=== PATIENT | female | born 1975 | race Caucasian/White ===

== ENCOUNTER 2018-08-18 16:48 | Emergency (ER) | payer OTHER, SELFPAY ==
[2018-08-18 16:53] VITALS: BP 115/73; PULSE 90; RESP 16; TEMP 37; O2SAT 100
[2018-08-18 17:12] LABS: Bilirubin Negative (Negative); Blood Negative (Negative); Clarity Clear; Glucose Negative (Negative); Ketones Negative (Negative); Leukocyte Esterase Negative (Negative); Nitrite Negative (Negative); Specific Gravity 1.015 (1.005-1.025); Urobilinogen 0.2 EU/dL (Up TO 0.2)
--- NOTE | 2018-08-18 17:17 | DI.CT_ITS ---
SYMPTOM/DIAGNOSIS: RUQ PAIN CT ABDOMEN AND PELVIS: CT scan of the abdomen and pelvis was performed following the uneventful administration of intravenous contrast material. There are dependent atelectatic changes in the lung bases, no acute infiltrates are seen. The liver, spleen, pancreas, gallbladder, bile ducts and adrenal glands are unremarkable. The kidneys, ureters and bladder have a normal appearance. The reproductive organs are unremarkable as visualized. The bowel shows no evidence of obstruction or inflammation. There is a normal retrocecal appendix present. The abdominal aorta is of normal caliber. No significant abdominal or pelvic adenopathy, ascites, or pneumoperitoneum is present. No acute abnormality is seen in the bones. IMPRESSION: No evidence of an acute abdomen.
[2018-08-18 17:29] LABS: Abs Immature Grans 0.01 k/cumm (0.0-0.09); Absolute Basophil Count 0.02 k/cumm (0.0-0.2); Absolute Eosinophil Count 0.12 k/cumm (0.0-0.7); Absolute Lymphocyte Count 2.89 k/cumm (1.2-3.4); Absolute Monocyte Count 0.96 k/cumm (0.11-0.7); Absolute Neutrophil Count 5.96 k/cumm (1.2-6.7); Basophils % 0.2; Eosinophils % 1.2; HCT 40.2 % (36.0-46.0); HGB 13.4 g/dL (12.0-15.5); Immature Grans % 0.1; Mean Corp. HGB Concentration 33.3 g/dL (32.0-36.0); Mean Corpuscular Volume 95.9 fL (80-95); Monocytes % 9.6; Neutrophils % 59.9; RBC 4.19 m/cumm (4.00-5.20); RBC Distribution Width 13.1 % (11.7-14.6); White Blood Cell Count 9.96 k/cumm (4.4-10.8)
--- NOTE | 2018-08-18 17:32 | ED.GENADUL_ITS ---
Discharge Plan Disposition Patient Disposition: HOME Condition: Good Discharge Details Chief Complaint: Abd Prob Clinical Impression: Muscle strain, Acute right flank pain Primary Care Provider: Nisha Booker ED Provider: Flaco Aguero Home Meds and New Rx's Prescriptions: New acetaminophen [Mapap Extra Strength] 500 MG tablet 1,000 mg PO Q6H 5 Days Qty: 60 RF: 0 lidocaine [Lidoderm] 1 PATCH patch 1 patch Topical Q24H Qty: 4 RF: 0 ibuprofen [Motrin IB] 200 MG tablet 600 mg PO Q6H 5 Days Qty: 60 RF: 0 Discharge Instructions Instructions: Flank Pain (ED) Additional Instructions: Please take Tylenol, Motrin and use Lidoderm patches as directed. Please avoid fatty foods. If you notice any worsening of your symptoms, or any new symptoms such as vomiting, diarrhea, fever, chills, shortness of breath, chest pain, numbness, weakness, or fainting , please return immediately to the emergency department for reevaluation. Please follow up with your primary care provider as soon as possible for reassessment and reevaluation. As always, it was a pleasure participating in your medical care today. Referrals: Nisha Booker [Primary Care Provider] - Medical Decision Making This is a 43-year-old female who presents with right upper quadrant pain for the last 4 days. It is unchanged by food, it is worsened with palpation and some movement. She has no associated urinary symptoms. Urine test is negative, urinalysis is benign. I am concerned for potential gallbladder pathology versus musculoskeletal. We did contact ultrasound however they are no longer at the hospital. We will get a CT scan for further evaluation potential gallbladder etiology, or other acute intra-abdominal pathology. 6:[address] scan has returned and demonstrates no significant abnormalities. Gallbladder is partially decompressed but no evidence of gallbladder wall thickening, or other significant abnormalities. Repeat evaluation the patient appears to be comfortable, vital signs continues to be normal. I feel her symptoms most likely secondary to musculoskeletal etiology, most likely a muscle spasm in the right lower ribs/flank. With a normal urinalysis normal laboratory workup, negative CT I feel she can be safely discharged home. Gallbladder spasms as a cause of radiology we have recommended that she avoid fatty foods. Also recommend continue Tylenol, Motrin, and heating pad. Her feels that it is most likely is a very bad mattress, and this may be playing a role, however I feel it less likely. we discussed red flags which to return the patient understands. I have extensively reviewed the treatment plan and discharge instructions with the patient and their family. I have addressed all patient concerns at this time. The patient and family was made aware of what symptoms to monitor for that would warrant a return to the emergency department. Discussed the plan with the patient and family, they demonstrate verbal understanding and agreement with our assessment and plan at this time. ABDOMEN: Liver: Normal. No mass. Gallbladder and bile ducts: Gallbladder is partially decompressed. Pancreas: Normal. No ductal dilation. Spleen: Normal. No splenomegaly. Adrenals: Normal. No mass. Kidneys and ureters: Normal. No hydronephrosis. Stomach and bowel: Normal. No obstruction. No mucosal thickening. Appendix: Status post appendectomy. PELVIS: Bladder: Unremarkable as visualized. Reproductive: Unremarkable as visualized. ABDOMEN and PELVIS: Intraperitoneal space: Normal. No free air. No significant fluid collection. Bones/joints: No acute fracture. No dislocation. Soft tissues: Unremarkable. Vasculature: Mild atherosclerosis. Lymph nodes: Normal. No enlarged lymph nodes. IMPRESSION: No acute findings. HPI General Date/Time Provider Initiated Documentation: 08/18/18 16:51 . HPI Narrative: This is a 43-year-old female with no past medical history no previous surgical history who presents today for right upper quadrant abdominal pain versus rib pain. Patient states that it is been present for the last 4 days, she describes that sharp in nature. It is located on the right flank, there is no radiation. It is not aggravated or improved by food. It is worsened with movement and palpation versus cough. She denies any associated cough though, any vomiting, diarrhea, dysuria or hematuria. She denies any other symptoms. She denies any IV or illicit drug use. She does admit to regular tobacco abuse. She denies any recent fever or chills. She denies any family history of cardiac disease at a young age. She denies any previous cardiac symptoms. She denies any chest pain or shortness of breath. Related Data Home Medications Medication Instructions Recorded Confirmed acetaminophen [Mapap Extra 1,000 mg PO Q6H 5 Days #60 tab 08/18/18 Strength] ibuprofen [Motrin Ib] 600 mg PO Q6H 5 Days #60 tab 11/12/18 lidocaine [Lidoderm] 1 patch TOPICAL Q24H #4 patch 08/18/18 Previous Rx's Medication Instructions Recorded acetaminophen [Mapap Extra 1,000 mg PO Q6H 5 Days #60 tab 08/18/18 Strength] ibuprofen [Motrin Ib] 600 mg PO Q6H 5 Days #60 tab 08/18/18 lidocaine [Lidoderm] 1 patch TOPICAL Q24H #4 patch 08/18/18 Allergies Allergy/AdvReac Type Severity Reaction Status Date / Time codeine AdvReac Intermediate Skin Rash Unverified 08/18/18 16:59 General Stated Complaint: Abd Prob WILFRIDO: 3 Review of Systems Review of Systems All systems reviewed & are unremarkable except as noted in HPI and below PFSH Social History Smoking/Tobacco Use Status: Current every day Exam Narrative Exam Narrative: 1.Const: Well-nourished, Well-developed, appearing stated age 2.Eyes: PERRL, no conjunctival injection, and symmetrical lids. 3.ENT: Atraumatic external nose and ears. Moist MM. Neck: Symmetric, trachea midline, No thyromegaly. 4.CVS: +S1/S2, No murmurs or gallops. Peripheral pulses 2+ and equal in all extremities. Brisk capillary refill in all extremities. 5.RESP: Unlabored respiratory effort. Clear to auscultation bilaterally. No wheezes rales or rhonchi 6.GI: Soft, Nontender/Nondistended, No hepatosplenomegaly. No guarding or rebound. Mild right upper quadrant pain with deep inhalation but no cessation of installation with palpation. No pain at McBurney's point. No flank or CVA tenderness. Negative heel strike, negative obturator and psoas sign 7.MSK: Normocephalic/Atraumatic, Extremities w/o deformity or ttp No cyanosis or clubbing, Normal movement of all extremities 8.Skin: Warm, Dry. No rashes or lesions. 9.Neuro: integration architect II-XII grossly intact. Sensation grossly intact, no focal neurologic deficits. 10.Psych: (AAO) x3. Appropriate mood and affect Course Vital Signs Temperature 37 C 08/18/18 16:53 Pulse 90 08/18/18 16:53 Respiratory Rate 16 08/18/18 16:53 Blood Pressure 115/73 08/18/18 16:53 Pulse Oximetry 100 08/18/18 16:53 Temperature 37 C 08/18/18 16:53 Temperature Source Skin 08/18/18 16:53 Pulse 90 08/18/18 16:53 Respiratory Rate 16 08/18/18 16:53 Respiratory Effort Non-Labored 08/18/18 16:53 Blood Pressure 115/73 08/18/18 16:53 Blood Pressure Position Sitting 08/18/18 16:53 Pulse Oximetry 100 08/18/18 16:53 Oxygen Delivery Method Room Air 08/18/18 16:53 Oxygen Flow Rate 0 08/18/18 16:53 Pain Level 0 08/18/18 16:53 Lab/Test Results Lab/Test Results: Laboratory Tests Range/Units 08/18/18 17:05 Urine Color (Yellow) Yellow Urine Clarity Clear Urine pH (5-8) 6.0 Ur Specific Carbon (1.005-1.025) 1.015 Urine Protein (Negative) mg/dL Negative Urine Ketones (Negative) mg/dL Negative Urine Blood (Negative) Negative Urine Nitrite (Negative) Negative Urine Bilirubin (Negative) Negative Urine Urobilinogen (Up TO 0.2) EU/dL 0.2 Ur Leukocyte Esterase (Negative) Negative Urine Glucose (Negative) mg/dL Negative POC- Test(urine) Negative
[2018-08-18] MEDS: Omnipaque 350 MG/ML 100 ML BTL IJ (17:35)
[2018-08-18 17:44] LABS: Lipase 81 U/L (73-393)
[2018-08-18 17:49] LABS: Mean Platelet Volume 12.2 fL (8.0-11.0); Platelet Count 90 x1000/uL (130-400)
[2018-08-18] MEDS: Normal Saline 1,000 ML 1000 ML IV (17:50)
[2018-08-18] MEDS: Ketorolac 15 MG/ML VIAL IVP (17:50)
--- NOTE | 2018-08-18 18:05 | DI.VRAD_ITS ---
EXAM: CT Abdomen and Pelvis With Intravenous Contrast EXAM DATE/TIME: 08/18/2018 5:19 PM CLINICAL HISTORY: 43 years old, female; Pain; Abdominal pain; Localized; Right upper quadrant (ruq); Patient HX: Ruq pain TECHNIQUE: Axial computed tomography images of the abdomen and pelvis with intravenous contrast. Coronal and sagittal reformatted images were created and reviewed. COMPARISON: No relevant prior studies available. FINDINGS: Lower thorax: No acute findings. ABDOMEN: Liver: Normal. No mass. Gallbladder and bile ducts: Gallbladder is partially decompressed. Pancreas: Normal. No ductal dilation. Spleen: Normal. No splenomegaly. Adrenals: Normal. No mass. Kidneys and ureters: Normal. No hydronephrosis. Stomach and bowel: Normal. No obstruction. No mucosal thickening. Appendix: Status post appendectomy. PELVIS: Bladder: Unremarkable as visualized. Reproductive: Unremarkable as visualized. ABDOMEN and PELVIS: Intraperitoneal space: Normal. No free air. No significant fluid collection. Bones/joints: No acute fracture. No dislocation. Soft tissues: Unremarkable. Vasculature: Mild atherosclerosis. Lymph nodes: Normal. No enlarged lymph nodes. IMPRESSION: No acute findings. Dictated and Authenticated by: Mikie Shaw MD. Ordering:DENNIS WYLIE MD
[2018-08-18 18:06] LABS: ALT 19 U/L (12-78); AST 5 U/L (15-37); Albumin 3.7 g/dL (3.4-5.0); Alkaline Phosphatase 87 U/L (46-116); Anion Gap 8.2 mmol/L (3-11); BUN 10 mg/dL (7-18); Bilirubin, Total 0.2 mg/dL (0.2-1.0); CO2 28.8 mmol/L (21.0-32.0); CREATININE 0.81 mg/dL (0.55-1.02); Calcium 8.7 mg/dL (8.5-10.1); Chloride 102 mmol/L (98-107); Glucose 90 mg/dL (70-100); Potassium 3.7 mmol/L (3.5-5.1); Sodium 139 mmol/L (136-145)
[2018-08-18 18:45] VITALS: BP 111/64; PULSE 71; RESP 16; TEMP 37; O2SAT 97
== END 2018-08-18 19:02 | disposition home or self-care (01) ==
PROVIDERS: Emergency Provider Student in an Organized Health Care Education/Training Program; PCP Nurse Practitioner Family
DX: R10.11 Right upper quadrant pain (principal); S39.011A Strain of muscle, fascia and tendon of abdomen, initial encounter; X58.XXXA Exposure to other specified factors, initial encounter
CPT/HCPCS: 36415; 80053; 81025; 83690; 96361; 96374; 99285; 74177; 81003; 85025; 99284; J1885; J3490

== ENCOUNTER 2019-09-01 15:01 | Emergency (ER) | payer OTHER, SELFPAY ==
[2019-09-01] VITALS (12 sets, daily range): BP systolic 111–131; BP diastolic 65–73; PULSE 72–94; RESP 16–28; TEMP 37; O2SAT 97–100
--- NOTE | 2019-09-01 15:13 | DI.CT_ITS ---
EXAM: CT CHEST PE CTA CLINICAL HISTORY: pleuritic chest pain TECHNIQUE: Axial CT angiography was performed with multi-slice acquisition and multi-planar and/or 3D reconstructions. FINDINGS: CT angiography of the chest was performed with bolus infusion of 100 cc of Omnipaque 350. Images obt ained through the upper abdomen show unremarkable appearance of visualized portions of liver, spleen, kidneys and adrenals as well as pancreas. No mediastinal or hilar adenopathy seen. Tracheobronchial tree appears intact. No evidence of pulmo nary embolic disease. Thoracic aorta and major branches are unremarkable. There is a poor inspiration. There are predominantly subpleural emphysematous changes. There is a q uestion of a focal area of nodular patchy consolidation at the left lung base medially, consider inf ectious process. Appropriate follow-up studies requested. No pleural effusion or pneumothorax ident ified. IMPRESSION: 1. No evidence of pulmonary embolic disease or other major vascular abnormality. 2. Suspect medial left lower lobe pneumonia. Follow-up chest CT requested following treatment. Neopla stic disease not excluded as cause of this finding.
--- NOTE | 2019-09-01 15:13 | ED.GENADUL_ITS ---
Discharge Plan Disposition Patient Disposition: HOME Condition: Stable Discharge Details Chief Complaint: Chest Pain Clinical Impression: Chest pain Primary Care Provider: Nisha Booker ED Provider: Gregg Escobar Home Meds and New Rx's Prescriptions: Continued naproxen sodium [Aleve] 220 mg Capsule 220 mg PO QID PRNRF: 0 Discharge Instructions Instructions: Chest Pain (ED) Additional Instructions: follow up with your primary care provider within a week. You should inform them of abnormalities seen on your cat scan of your chest as you should have a follow up cat scan to see if this is changing if you have worsening pain, difficulty breathing or fevers return to the emergency department Medical Decision Making 44 yo female with hx of smoking otherwise no medical problems comes in with chief complaint of chest pain. She states she has had the pain for 2 days that improved with ibuprofen and is locazlies to the right upper chest and hurts when she takes deep breaths in. She denies radiation of pain, diaphoresis or n/v. She HAs no fevers, chills, n/v. She is in no distress on exam speaking in full sentences in no distress. Has clear lungs, no jvd or leg swelling. Her heart score is 2, will send troponin. WElls score is moderate so will obtain CTA to eval for PE. HAs no tearing back pain and normal vascular exam so doubt dissection labs unremarkable, she is having more pain at the IV site than her chest at this time, awaiting CT results ct shows no pe or orther life threatening pathology. Does show findings co ncerning on CT for emphysema and also has some lobular density that needs f/u with pcp for and I told her of these results. Given low heart score will d/c home and advised f/u with pcp with return precautions Differential Diagnosis Differential Diagnosis: pe, ptx, pna, chest wall pain Imaging Data Radiologic Study: Attestation: I personally reviewed and interpreted this imaging study as follows: Imaging: CT Scan Radiologist's impression: IMPRESSION: 1. No segmental pulmonary emboli. Evaluation is limited due to hypoventilatory changes. 2. More than expected for age upper lobe paraseptal emphysema, reticular densities and/or intralobular septal thickening at the lung bases. Evaluation is complicated by hypoventilatory change and likely superimposed atelectasis. Additionally, an ill-defined lobular density at the medial left lung base could represent a similar process; however, complete evaluation should include inspiratory and possibly prone imaging. Recommend high resolution CT of the lungs for further evaluation of potential underlying progressive lung process. Recommend correlation to smoking history (traditional or electronic). Lab Data Lab results reviewed: Yes I reviewed the patient's lab results. ECG Data Attestation: I personally reviewed and interpreted this ECG (s) as follows: Prior ECG tracings: not available for review Interpretation: sinus rhythm, rate of 80, pr 142, no acute st t wave ischemic findings HPI General Mode of arrival: ambulatory . Date/Time Provider Initiated Documentation: 09/01/19 15:06 . Limitations to Documentation: no limitations . Information obtained by: patient . History of Present Illness 44 year old F presents to the emergency department with the chief complaint of chest pain, described as moderate, Quality is described as aching, and is localized to the chest. Patient reports no radiation. Patient started experiencing this day(s) (2) and it has been constant. No relieving factors improve symptom(s), Other factors that worsen symptoms (deep breaths) . Patient notes no other symptoms.. Patient did receive the following treatments prior to arrival, NSAID Related Data Home Medications Medication Instructions Recorded Confirmed naproxen sodium [Aleve] 220 mg PO QID PRN 09/01/19 09/01/19 Allergies Allergy/AdvReac Type Severity Reaction Status Date / Time codeine AdvReac Intermediate Skin Rash Unverified 09/01/19 15:11 General Stated Complaint: Chest Pain WILFRIDO: 2 Review of Systems All systems reviewed & are unremarkable except as noted in HPI and below Constitutional Constitutional: Denies chills, Denies fever(s) and Denies weakness Cardiovascular Cardiovascular: Denies dyspnea Respiratory Respiratory: Denies dyspnea Gastrointestinal Gastrointestinal: Denies abdominal pain, Denies nausea and Denies vomiting Musculoskeletal Musculoskeletal: Denies joint swelling Neurologic Neurologic: Denies weakness PFSH Social History Smoking/Tobacco Use Status: Current every day Tobacco Type: cigarettes Alcohol Intake: current Alcohol Intake frequency: holidays/special occasions only Drug use: Never Do you feel safe at home: Yes Do you feel safe in your relationship?: Yes Exam Const General: no acute distress Orientation: alert HENMT Head: normal to inspection Ears: external ears normal General nose exam: external nose normal Mouth: moist mucous membranes Eyes General: appearance normal, both eyes and all related structures Neck Neck: normal visual inspection Chest Chest: no tenderness and No rash Resp Effort & Inspection: normal respiratory effort and able to speak in complete sentences Cardio Rate: regular rate Skin General skin exam: no rashes or lesions noted Neuro General: alert and oriented x3 Extrem General: normal to inspection Psych Mental Status: mental status grossly normal Course Vital Signs Vital signs: Vital Signs Temperature 37 C 09/01/19 15:05 Pulse 94 H 09/01/19 15:05 Respiratory Rate 18 09/01/19 15:05 Blood Pressure 131/67 09/01/19 15:05 Pulse Oximetry 100 09/01/19 15:05 Temperature 37 C 09/01/19 15:05 Temperature Source Temporal Artery Scan 09/01/19 15:05 Pulse 94 H 09/01/19 15:05 Respiratory Rate 18 09/01/19 15:05 Respiratory Effort Non-Labored 09/01/19 15:09 Blood Pressure 131/67 09/01/19 15:05 Blood Pressure Position Supine 09/01/19 15:05 Pulse Oximetry 100 09/01/19 15:05 Oxygen Delivery Method Room Air 09/01/19 15:05 Oxygen Flow Rate 0 09/01/19 15:05 Pain Level 2 09/01/19 15:05
[2019-09-01] MEDS: Aspirin 81 MG CHEW 324 MG CH (15:22)
[2019-09-01] MEDS: Normal Saline Flush 10 ML SYR IVP (15:22)
--- NOTE | 2019-09-01 15:31 | NUR.NOTE ---
pt arrived by ems yelling I'm not staying her. Pt will refuses to get off ems stretcher. States she want to go to [facility]. said that she told the [facility] a week ago that she was sick and they did nothing. Jaylin did not tell her what hospital she was going to, she thought she was going to [facility]. states she was upset in the ambulance when she found out she was coming here. God dam people just do what they want. Pt spoke on the phone to her [facility] nurse and still refuses to stay here. signed AMA form and ems is bring her back to the [facility]. Pt angry and yelling while she was here. Nursing Note:
[2019-09-01 15:32] LABS: Abs Immature Grans 0.04 k/cumm (0.0-0.09); Absolute Basophil Count 0.02 k/cumm (0.0-0.2); Absolute Eosinophil Count 0.05 k/cumm (0.0-0.7); Absolute Lymphocyte Count 2.22 k/cumm (1.2-3.4); Absolute Monocyte Count 1.06 k/cumm (0.11-0.7); Absolute Neutrophil Count 5.03 k/cumm (1.2-6.7); Basophils % 0.2; Eosinophils % 0.6; HCT 40.3 % (36.0-46.0); HGB 13.4 g/dL (12.0-15.5); Immature Grans % 0.5; Lymphocytes % 26.4; Mean Corp. HGB Concentration 33.3 g/dL (32.0-36.0); Mean Corpuscular Hemoglobin 31.6 pg (27.0-33.0); Mean Platelet Volume 11.7 fL (8.0-11.0); Monocytes % 12.6; Neutrophils % 59.7; Platelet Count 110 x1000/uL (130-400); RBC 4.24 m/cumm (4.00-5.20); RBC Distribution Width 13.9 % (11.7-14.6); White Blood Cell Count 8.42 k/cumm (4.4-10.8)
[2019-09-01 15:39] LABS: ALT 18 U/L (14-59); AST 7 U/L (15-37); Albumin 4.1 g/dL (3.4-5.0); Alkaline Phosphatase 86 U/L (46-116); Anion Gap 9.4 mmol/L (3-11); BUN 10 mg/dL (7-18); Bilirubin, Total 0.4 mg/dL (0.2-1.0); CO2 28.6 mmol/L (21.0-32.0); CREATININE 0.84 mg/dL (0.55-1.02); Chloride 102 mmol/L (98-107); Glucose 100 mg/dL (74-106); Potassium 3.5 mmol/L (3.5-5.1); Sodium 140 mmol/L (136-145); Total Protein 7.3 g/dL (6.4-8.2)
[2019-09-01 15:40] LABS: Prothrombin Time 10.4 sec (9.3-11.0)
[2019-09-01 15:41] LABS: Magnesium 1.8 mg/dL (1.8-2.4)
[2019-09-01 15:44] LABS: Troponin I < 0.05 ng/Ml (<0.06)
[2019-09-01] MEDS: Omnipaque 350 MG/ML 100 ML BTL IJ (15:48)
--- NOTE | 2019-09-01 16:38 | DI.VRAD_ITS ---
PROCEDURE INFORMATION: Exam: CT Angiography Chest Without And With Contrast Exam date and time: 09/01/2019 3:48 PM Age: 44 years old Clinical history: Pain; Pleuordynia TECHNIQUE: Imaging protocol: Computed tomographic angiography of the chest without and with intravenous contrast. 3D rendering: MIP reconstructed images were created and reviewed. Radiation optimization: All CT scans at this facility use at least one of these dose optimization techniques: automated exposure control; mA and/or kV adjustment per patient size (includes targeted exams where dose is matched to clinical indication); or iterative reconstruction. Contrast material: OMNIPAQUE 350; Contrast volume: 100 ml; Contrast route: IV; Other contrast: Other: iv only; COMPARISON: No relevant prior studies available. FINDINGS: Pulmonary arteries: Normal. No pulmonary emboli to the segmental level. Aorta: Unremarkable. No aortic aneurysm. No aortic dissection. Lungs: Hypoventilatory changes. Upper lobe paraseptal emphysema changes. Reticular densities and/or intralobular septal thickening of the lung bases. This is difficult to evaluate due to hypoinflation and likely superimposed atelectasis. Ill-defined density at the medial left lung base may represent a similar process of atelectasis; however, this appears more dense and nodular. Pleural space: Unremarkable. No pneumothorax. No pleural effusion. Heart: Unremarkable. No cardiomegaly. No pericardial effusion. Lymph nodes: Unremarkable. No enlarged lymph nodes. Bones/joints: There is a mild scoliosis. Soft tissues: Unremarkable. IMPRESSION: 1. No segmental pulmonary emboli. Evaluation is limited due to hypoventilatory changes. 2. More than expected for age upper lobe paraseptal emphysema, reticular densities and/or intralobular septal thickening at the lung bases. Evaluation is complicated by hypoventilatory change and likely superimposed atelectasis. Additionally, an ill-defined lobular density at the medial left lung base could represent a similar process; however, complete evaluation should include inspiratory and possibly prone imaging. Recommend high resolution CT of the lungs for further evaluation of potential underlying progressive lung process. Recommend correlation to smoking history (traditional or electronic). Dictated and Authenticated by: Rob Bloom MD. Ordering:SOREN Escobedo MD
--- NOTE | 2019-09-01 17:19 | NUR.NOTE ---
Nursing Note: Referral faxed to PCP for follow up. Laverne Grier.
--- NOTE | 2019-09-02 08:35 | NUR.NOTE ---
Nursing Note: At Dr. Escobar's request I called the patient and notified her that the radiologist saw pneumonia on xray and that I will be calling in a prescription for Levofloxacin 750mg 1 a day for 7 days to [facility] in [place]. A referral was faxed also to Dr. Booker's office for a chest CT follow up and review of the radiologist report. Laverne Grier.
== END 2019-09-01 17:00 | disposition home or self-care (01) ==
PROVIDERS: Emergency Provider Emergency Medicine; PCP Nurse Practitioner Family
DX: R07.9 Chest pain, unspecified (principal)
CPT/HCPCS: 36415; 71275; 80053; 93005; 99285; 83735; 84484; 85025; 85610; 93010; J3490

== ENCOUNTER 2021-05-14 11:23 | Emergency (ER) | payer OTHER, SELFPAY ==
[2021-05-14 11:27] VITALS: BP 117/75; PULSE 93; RESP 16; TEMP 37.2; O2SAT 99
--- NOTE | 2021-05-14 11:45 | DI.RAD_ITS ---
Exam(s) XR WRIST LT COMP NAVICULAR XR HAND LT COMPLETE EXAM: XR HAND LT COMPLETE CLINICAL HISTORY: pain, injury TECHNIQUE: COMPARISON: CR XR WRIST LT COMP NAVICULAR from 05/14/2021 CR XR WRIST LT COMP NAVICULAR from 05/14/2021 FINDINGS: Three views of the hand and three views of the wrist were obtained. There is no evidence of acute fr acture or dislocation. Carpal alignment appears within normal limits. IMPRESSION: RADIATION DOSE DELIVERED: Total DLP
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
== END 2021-05-14 12:16 | disposition home or self-care (01) ==
PROVIDERS: Emergency Provider Student in an Organized Health Care Education/Training Program; PCP Nurse Practitioner Family
DX: S63.8X2A Sprain of other part of left wrist and hand, initial encounter (principal); X58.XXXA Exposure to other specified factors, initial encounter
CPT/HCPCS: 99284; 73110; 73130; 99283

== ENCOUNTER 2023-07-04 05:42 | Emergency (ER) | payer BC, OTHER, SELFPAY ==
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
[2023-07-04 05:47] VITALS: BP 124/86; PULSE 89; RESP 18; TEMP 36.8; O2SAT 100
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
[2023-07-04] MEDS: Acetaminophen 500 MG TAB 1000 MG PO (06:04)
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
[2023-07-04] MEDS: Omnipaque 350 MG/ML 100 ML BTL 70 ML IJ (06:42)
[2023-07-04] MEDS: Normal Saline - Diluent 50 ML VIAL IJ (06:42)
[2023-07-04] MEDS: Normal Saline Flush 10 ML SYR IVP (06:43)
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
[2023-07-04] MEDS: Ibuprofen 800 MG TAB PO (07:55)
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
== END 2023-07-04 08:42 | disposition home or self-care (01) ==
PROVIDERS: Emergency Provider Student in an Organized Health Care Education/Training Program; PCP Nurse Practitioner Family
DX: S10.83XA Contusion of other specified part of neck, initial encounter (principal); S30.0XXA Contusion of lower back and pelvis, initial encounter; S20.212A Contusion of left front wall of thorax, initial encounter; V43.52XA Car driver injured in collision with other type car in traffic accident, initial encounter
CPT/HCPCS: 99285; 70450; 71260; 72125; 99284; J3490

== ENCOUNTER 2023-08-20 06:13 | Day surgery (SDC) | payer OTHER, SELFPAY ==
[2023-08-20 06:27] VITALS: BP 101/65; PULSE 76; RESP 16; TEMP 36.7; O2SAT 100
[2023-08-20] MEDS: Lactated Ringers 1,000 ML 80 ML IV (06:44)
--- NOTE | 2023-08-20 06:55 | W.ANESPRE ---
General Info Date of Service Date Performed: 08/20/23 Height: 5 ft 8 in Weight: 81.828 kg Body Mass Index (BMI): 27.4 Surgical Procedure: Operation Date: 08/20/23 07:40 Proposed Procedure Side Surgeon p Wrist ECTR Right Michael Jeffrey MD Meds Allergies and Home Medications Allergies Allergy/AdvReac Type Severity Reaction Status Date / Time codeine AdvReac Intermediate Skin Rash Unverified 08/20/23 06:27 Home Medication Medication Instructions Recorded naproxen sodium 220 mg capsule 220 mg PO QID PRN 09/01/19 (Aleve) Current Visit Medications: Current Medications Generic Name Dose Route Start Last Admin Trade Name Freq PRN Reason Stop Dose Admin Ringer's Solution 1,000 mls @ 80 mls/hr 08/20/23 06:00 08/20/23 06:44 IV 09/18/23 23:59 80 mls/hr INFUSION DINORAH Administration Cefazolin Sodium/Dextrose 2 gm in 50 mls @ 100 mls/hr 08/20/23 06:00 Ancef Duplex IVPB 08/20/23 16:00 PREOP DINORAH IV Miscellaneous Supplies 1 each 08/20/23 06:00 Iv Access IV 09/18/23 23:59 DIRECTED DINORAH Sodium Chloride 0 ml 08/20/23 06:00 Normal Saline Flush 10 Ml Syr IV 09/18/23 23:59 PRN PRN Sodium Chloride 0 ml 08/20/23 06:00 Normal Saline 10 Ml Vial IJ 09/18/23 23:59 DIRECTED PRN Sterile Water 0 ml 08/20/23 06:00 Water,Injection,Sterile 10 Ml Vial IJ 09/18/23 23:59 DIRECTED PRN PFSH Active Problems Active Problems: Problem Status Onset Code Bilateral carpal tunnel syndrome G56.03 Sprain of left hand S63.92XA Medical History Medical History Idiopathic thrombocytopenic purpura (ITP) Perimenopausal Tobacco dependence Wrist pain Tobacco Smoking/Tobacco Use Status: Current every day Tobacco Type: cigarettes Alcohol Alcohol Intake: current Alcohol intake frequency: holidays/special occasions only Alcohol type: hard liquor Substance Use Substance use: Never Substance use type: does not use Vital Signs and Lab Results Vital Signs Most Recent Vital Signs in EMR: Most Recent Vital Signs Temp Pulse Resp BP Pulse Ox 36.7 C 76 16 101/65 100 08/20/23 06:27 08/20/23 06:27 08/20/23 06:27 08/20/23 06:27 08/20/23 06:27 Lab Results Blood Type / Crossmatch: No Data to Display Complete Blood Count: No Data to Display Complete Metabolic Panel: No Data to Display Liver Function Panel: No Data to Display Coagulation Panel: No Data to Display Cardiac Panel: No Data to Display Arterial Blood Gas: No Data to Display Venous Blood Gas: No Data to Display Pancreas Panel: No Data to Display Thyroid Panel: No Data to Display Infectious Disease: No Data to Display Blood Cultures: No Data to Display Toxicology Panel: No Data to Display Panel: No Data to Display Anesthesia Assessment and Plan Anesthesia History Personal History: No History of Anesthesia Complications Family History: No Family History of Anesthesia Complications Exercise Tolerance Exercise Tolerance: Metabolic Equivalents>4 Pertinent Negatives Pertinent Negatives: No Symptoms of GERD, No Major Cardiovascular Symptoms or Complaints and No Major Pulmonary Symptoms or Complaints Cardiac & Pulmonary Exam Cardiac Exam: Normal S1/S2 Heart Sounds Pulmonary Exam: Clear Bilateral Breath Sounds Implantable Cardiac Device Does patient have a Pacemaker or an ICD?: No Airway Exam Known Difficult Airway: No Mallampati Class: 1 Mouth Opening: Normal (> 3cm) Thyromental Distance: Greater than 3 cm Neck Range of Motion: Full ROM Neck Circumference: Normal Teeth Condition: Removable Dentures/Plates Upper and Edentulous ASA Classification ASA Score: ASA 2 Emergency Case?: No NPO Status NPO Status: NPO Clears >2 hours, Solids >8 hours Status Status: Not Relevant due to Medical History (Reports menopause) Anesthesia Plan Resuscitation Status: Full Code Anesthesia Technique: General Anesthesia Airway Planned: Natural Airway Monitors Used: Standard Monitors
[2023-08-20 07:14] VITALS: BMI 27.4
--- NOTE | 2023-08-20 07:16 | PDOC.DSDIS_ITS ---
Date of service: 08/20/23 Time of Service: 07:17 Discharge Plan Disposition Patient Disposition: Home Condition: Good Discharge Details Reason For Visit: Right carpal tunnel syndrome Attending Provider: Michael Jeffrey Primary Care Provider: Shauna Sevilla Home Meds and New Rx's Prescriptions: Continued naproxen sodium [Aleve] 220 mg Capsule 220 mg PO QID PRN Discharge Instructions Stand Alone Forms: [place] C. Tunnel Release Referrals: Michael Jeffrey MD [ [facility] STAFF PHYSICIAN] - Activity:: Elevate Remove Dressings/Wound Care:: 48 hours Shower/Bathe:: 48 hours Diet:: As Tolerated Discharge Orders Discharge Orders: Discharge Order (Routine); Ordered 08/20/23 Ordered By: Yudith Henriquez DS: Diagnosis Discharge Diagnosis (1) Right carpal tunnel syndrome: Status: Acute
--- NOTE | 2023-08-20 07:20 | W.PREOPHP ---
Assessment and Plan Assessment and plan (1) Right carpal tunnel syndrome: Status: Acute Assessment and plan: Diann is a 48-year-old female who has carpal tunnel syndrome of both hands, worse on the right side. She is here today for carpal tunnel release. Due to the persistence of symptoms and their daily limitations with normal function, I offered a carpal tunnel release. I discussed the technical details of carpal tunnel release and that I perform an endoscopic release, but would make a larger, open, incision if necessary for visualization. I discussed the risks of the procedure to include, but not limited to, bleeding, infection, palmar pain, stiffness, damage to nerves, damage to vessels, damage to tendons, weakness, recurrence, and incomplete release. Given these risks, Diann desires to proceed. History of Present Illness History of Present Illness Chief Complaint: Right Carpal Tunnel Syndrome Narrative: Diann is a 48-year-old female who has ongoing right-sided hand numbness and tingling. She been seen previously in the office for this diagnosis. She also has some symptoms about the left side. She is largely had no changes in her symptoms from before. Her numbness and tingling is mostly involving the thumb, index finger, middle finger. She has had no recent medical issues. She has no chest pain or shortness of breath. Review of Systems All systems reviewed & are unremarkable except as noted in HPI and below PFSH All Active Problems Right carpal tunnel syndrome (Acute) Bilateral carpal tunnel syndrome (Acute) Sprain of left hand (Acute) Medical History Tobacco dependence Idiopathic thrombocytopenic purpura (ITP) Perimenopausal Wrist pain Social History Smoking/Tobacco Use Status: Current every day Tobacco Type: cigarettes Smoking risk assessment performed?: Yes Alcohol Intake: current Alcohol Intake frequency: holidays/special occasions only Alcohol type: hard liquor Drug use: Never Substance use type: does not use Housing: house Do you feel safe at home: Yes Do you feel safe in your relationship?: Yes Meds Allergies and Home Medications Allergies Allergy/AdvReac Type Severity Reaction Status Date / Time codeine AdvReac Intermediate Skin Rash Unverified 08/20/23 06:27 Home Medications Medication Instructions Recorded Confirmed Type naproxen sodium 220 mg capsule 220 mg PO QID PRN 09/01/19 08/19/23 History (Aleve) Exam Resp Auscultation: clear to auscultation bilaterally Cardio Rate: regular rate Rhythm: regular rhythm Extrem Other: Evaluation of the right wrist shows no overlying swelling or skin changes. No signs of infection. Positive Asim's and Phalen's test. Decreased sensation in the median nerve distribution. Results Last Vital Signs Temp 36.7 C 08/20/23 06:27 Pulse 76 08/20/23 06:27 Resp 16 08/20/23 06:27 BP 101/65 08/20/23 06:27 Pulse Ox 100 08/20/23 06:27
[2023-08-20] MEDS: ceFAZolin 2 GM/50 ML BAG IVPB (07:25)
--- NOTE | 2023-08-20 07:42 | W.PM.OP ---
Date of service: 08/20/23 Time of Service: 07:30 Operative Note Operative Note DATE OF PROCEDURE: 08/20/23 PRE-OP DIAGNOSIS: Right Carpal Tunnel Syndrome POST-OP DIAGNOSIS: same PROCEDURE: Right Endoscopic Carpal Tunnel Release SURGEON: Michael Jeffrey ANESTHESIA TYPE: General:No Airway Refer to Anesthesia Record ESTIMATED BLOOD LOSS: 0 PATHOLOGY: none sent TOURNIQUET TIME: 5 COMPLICATIONS: None Patient was transported to: same day Patient's condition: stable Indications: I have seen Diann in clinic for symptoms of carpal tunnel syndrome. The numbness, tingling, and pain limited function. Clinical exam findings confirmed the diagnosis of carpal tunnel syndrome. Nonoperative measures such as bracing, time, activity modifications had been tried but disability and pain persisted. I discussed carpal tunnel release with the patient. I reviewed the risks of the procedure to include, but not limited to, bleeding, infection, pain, stiffness, incomplete release, damage to nerves or vessels, persistent numbness, recurrence. Despite these risks, the patient elected to proceed. Findings: There was tightened carpal tunnel. This was dilated and released successfully with the endoscopic with increased space within the tunnel. The antebrachial fascia was released proximally freeing the median nerve at the wrist. Procedure Description: Diann was greeted in the preoperative holding area where the correct side was identified and marked. The consent was reviewed with the patient and signed. The history and physical was updated. All questions were answered. She was taken back to the operating room. The patient was placed into the supine position on the operating room table with the right arm on an arm board. A nonsterile tourniquet was placed high onto the arm. All bony prominences were well padded. Prophylactic antibiotics in the form of Cefazolin were administered. The right arm was then prepped with Chloraprep and draped in a standard fashion with stockinette and extremity drape. A timeout to confirm correct identity, side and site, procedure, allergies, anesthesia, and medical concerns was performed. The surgical site was marked in the volar wrist creases in line with the radial border of the fourth ray. This area was anesthetized with approximately 6cc of 1% Lidocaine. The limb was then exsanguinated with an Esmarch. The skin was incised with a 15 blade, approximately 1cm. The skin only was cut and the deeper tissue was dissected bluntly with a tenotomy scissor, avoiding passing nerve and venous structures. The fascia was penetrated and opened bluntly. A two-prong skin hook was placed under this proximal fascial edge. A series of hamate finders were used to identify and dilate the carpal tunnel. Synovial elevator was used to free synovial attachments to the underside of the transverse carpal ligament. My thumb was kept in the palm to janet the distal extent of the carpal tunnel and correctly position the hand. The [employer]aire endoscope was inserted without difficulty and without resistance. Excellent visualization showed horizontally running fibers of the transverse carpal ligament (TCL). The distal extent of the TCL was visualized and the end of the scope palpated with the thumb. The blade was elevated and withdrawn from distal to proximal. The TCL was split into two flaps. The endoscope was reinserted to confirm complete release and any remnant ligament was incised. The scope was withdrawn and the proximal aspect of the carpal tunnel was grossly inspected and appeared release with the median nerve visible. The antebrachial fascia at the level of the wrist was then freed from the overlying skin and then the underlying median nerve with blunt dissection. This was transected longitudinally for about 3cm proximal to the wrist incision. The wound was then irrigated with easy flow of irrigant distally and proximally. The incision was closed with a single 4-0 Nylon suture. The wound was dressed with Xeroform, Gauze, Kerlix and Jose. The tourniquet was deflated with the initial dressing and held with some pressure. Blood flow returned easily to all digits with capillary refill less than 2 seconds. The patient tolerated the procedure well and was returned to the Same Day Surgery area in a stable condition suffering no known complication.
[2023-08-20 07:45] VITALS: BP 95/56; PULSE 73; RESP 16; TEMP 36.3; O2SAT 97
[2023-08-20] MEDS: Lidocaine 1% Multi-Dose W/EPI 1/100,000 50 ML VIAL (07:48)
[2023-08-20 08:15] VITALS: BP 123/72; PULSE 69; RESP 16; TEMP 36.5; O2SAT 97
== END 2023-08-20 08:31 | disposition home or self-care (01) ==
PROVIDERS: PCP Nurse Practitioner Family; Visit Provider Student in an Organized Health Care Education/Training Program
PROC: 01N54ZZ Release Median Nerve, Percutaneous Endoscopic Approach (ICD-10-PCS; CPT 29848; principal; 2023-08-20 07:30)
DX: G56.01 Carpal tunnel syndrome, right upper limb (principal)
CPT/HCPCS: 29848; J0690; J1885; J2250; J2405; J2704; J3010

== ENCOUNTER 2023-08-27 06:09 | Day surgery (SDC) | payer BC, SELFPAY ==
--- NOTE | 2023-08-20 09:57 | W.ANESPOSTOP ---
Postoperative Evaluation Date, Time and Location Date Performed: 08/20/23 Time Performed: 08:25 Patient Location: Day Surgery Unit Assessment Mental Status: Awake (Alert & Oriented to Patient Baseline) Airway and Respiratory Function: Patent airway with normal (patient baseline) respiratory exam Cardiovascular Function: Hemodynamically Stable Hydration Status: Adequately Hydrated Nausea & Vomiting: No Nausea or Vomiting Pain: Pt. Denies Any Pain Peripheral Nerve Block: Patient did not receive a nerve block
[2023-08-27 06:24] VITALS: BP 102/65; PULSE 77; RESP 16; TEMP 36.6; O2SAT 100
--- NOTE | 2023-08-27 07:03 | W.ANESPRE ---
General Info Date of Service Date Performed: 08/27/23 Height: 5 ft 8 in Weight: 79.9 kg Body Mass Index (BMI): 26.7 Surgical Procedure: Operation Date: 08/27/23 07:40 Proposed Procedure Side Surgeon p Wrist ECTR Left Michael Jeffrey MD Meds Allergies and Home Medications Allergies Allergy/AdvReac Type Severity Reaction Status Date / Time codeine AdvReac Intermediate Skin Rash Unverified 08/27/23 06:31 Home Medication Medication Instructions Recorded naproxen sodium 220 mg capsule 220 mg PO QID PRN 09/01/19 (Aleve) Current Visit Medications: Current Medications Generic Name Dose Route Start Last Admin Trade Name Freq PRN Reason Stop Dose Admin Ringer's Solution 1,000 mls @ 80 mls/hr 08/27/23 06:00 IV 08/27/23 23:59 INFUSION DINORAH Cefazolin Sodium/Dextrose 2 gm in 50 mls @ 100 mls/hr 08/27/23 06:00 Ancef Duplex IVPB 08/27/23 23:59 PREOP DINORAH IV Miscellaneous Supplies 1 each 08/27/23 06:00 Iv Access IV 08/27/23 23:59 DIRECTED DINORAH Sodium Chloride 0 ml 08/27/23 06:00 Normal Saline Flush 10 Ml Syr IV 08/27/23 23:59 PRN PRN Sodium Chloride 0 ml 08/27/23 06:00 Normal Saline 10 Ml Vial IJ 08/27/23 23:59 DIRECTED PRN Sterile Water 0 ml 08/27/23 06:00 Water,Injection,Sterile 10 Ml Vial IJ 08/27/23 23:59 DIRECTED PRN PFSH Active Problems Active Problems: Problem Status Onset Code Right carpal tunnel syndrome G56.01 Bilateral carpal tunnel syndrome G56.03 Sprain of left hand S63.92XA Medical History Medical History Tobacco dependence Idiopathic thrombocytopenic purpura (ITP) Perimenopausal Wrist pain Medical History Comments:: 08/27/23 - pt reports she has smoked 2 cigarettes Tobacco Smoking/Tobacco Use Status: Current every day Tobacco Type: cigarettes Alcohol Alcohol Intake: current Alcohol intake frequency: holidays/special occasions only Alcohol type: hard liquor Substance Use Substance use: Never Substance use type: does not use Vital Signs and Lab Results Vital Signs Most Recent Vital Signs in EMR: Most Recent Vital Signs Temp Pulse Resp BP Pulse Ox 36.6 C 77 16 102/65 100 08/27/23 06:24 08/27/23 06:24 08/27/23 06:24 08/27/23 06:24 08/27/23 06:24 Lab Results Blood Type / Crossmatch: No Data to Display Complete Blood Count: No Data to Display Complete Metabolic Panel: No Data to Display Liver Function Panel: No Data to Display Coagulation Panel: No Data to Display Cardiac Panel: No Data to Display Arterial Blood Gas: No Data to Display Venous Blood Gas: No Data to Display Pancreas Panel: No Data to Display Thyroid Panel: No Data to Display Infectious Disease: No Data to Display Blood Cultures: No Data to Display Toxicology Panel: No Data to Display Panel: No Data to Display Anesthesia Assessment and Plan Anesthesia History Personal History: No History of Anesthesia Complications Family History: No Family History of Anesthesia Complications Exercise Tolerance Exercise Tolerance: Metabolic Equivalents>4 Pertinent Negatives Pertinent Negatives: No Symptoms of GERD, No Major Cardiovascular Symptoms or Complaints and No Major Pulmonary Symptoms or Complaints Cardiac & Pulmonary Exam Cardiac Exam: Normal S1/S2 Heart Sounds Pulmonary Exam: Clear Bilateral Breath Sounds Implantable Cardiac Device Does patient have a Pacemaker or an ICD?: No Airway Exam Known Difficult Airway: No Mallampati Class: 1 Mouth Opening: Normal (> 3cm) Thyromental Distance: Greater than 3 cm Neck Range of Motion: Full ROM Neck Circumference: Normal Teeth Condition: Removable Dentures/Plates Upper and Edentulous ASA Classification ASA Score: ASA 2 Emergency Case?: No NPO Status NPO Status: NPO Clears >2 hours, Solids >8 hours Status Status: Not Relevant due to Medical History (Reports menopause) Anesthesia Plan Resuscitation Status: Full Code Anesthesia Technique: General Anesthesia Airway Planned: Natural Airway Monitors Used: Standard Monitors
--- NOTE | 2023-08-27 07:18 | W.PM.DSUDISC ---
Date of service: 08/27/23 Time of Service: 07:19 Discharge Plan Disposition Patient Disposition: Home Condition: Good Discharge Details Reason For Visit: Left carpal tunnel syndrome Attending Provider: Michael Jeffrey Primary Care Provider: Shauna Sevilla Home Meds and New Rx's Prescriptions: Continued naproxen sodium [Aleve] 220 mg Capsule 220 mg PO QID PRN Discharge Instructions Stand Alone Forms: [place] C. Tunnel Release Referrals: Michael Jeffrey MD [ [facility] STAFF PHYSICIAN] - Activity:: Elevate Remove Dressings/Wound Care:: 48 hours Shower/Bathe:: 48 hours Diet:: As Tolerated Discharge Orders Discharge Orders: Discharge Order (Routine); Ordered 08/27/23 Ordered By: Yudith Henriquez
[2023-08-27] MEDS: Lactated Ringers 1,000 ML 80 ML IV (07:20)
--- NOTE | 2023-08-27 07:22 | W.PREOPHP ---
Assessment and Plan Assessment and plan (1) Left carpal tunnel syndrome: Status: Acute Assessment and plan: Diann is a 48-year-old female who has bilateral carpal tunnel syndrome, status post right carpal tunnel release. She is doing well from the right side and is here to for the left side. No other acute issues. No complications from the surgery. Once again I explained the procedure with her. I discussed the risk to include bleeding, infection, pain, stiffness, palmar pain, incomplete release, recurrence or scarring around the nerve or tendons. Despite these risk, she elects to proceed. History of Present Illness History of Present Illness Chief Complaint: Left carpal tunnel syndrome Narrative: Diann is a 48-year old female who has bilateral carpal tunnel syndrome. She is status post right carpal tunnel release and doing well except for some mild soreness. The numbness and tingling is resolved. She has some ongoing numbness tingling the left side and is here today for left carpal tunnel release. No other acute issues. No chest pain or shortness of breath. Review of Systems All systems reviewed & are unremarkable except as noted in HPI and below PFSH All Active Problems (Updated 08/27/23 @ 07:23 by Michael Jeffrey MD) Left carpal tunnel syndrome (Acute) Right carpal tunnel syndrome (Acute) Bilateral carpal tunnel syndrome (Acute) Sprain of left hand (Acute) Medical History Tobacco dependence Idiopathic thrombocytopenic purpura (ITP) Perimenopausal Wrist pain Social History Smoking/Tobacco Use Status: Current every day Tobacco Type: cigarettes Smoking risk assessment performed?: Yes Alcohol Intake: current Alcohol Intake frequency: holidays/special occasions only Alcohol type: hard liquor Drug use: Never Substance use type: does not use Housing: house Do you feel safe at home: Yes Do you feel safe in your relationship?: Yes Meds Allergies and Home Medications Allergies Allergy/AdvReac Type Severity Reaction Status Date / Time codeine AdvReac Intermediate Skin Rash Unverified 08/27/23 06:31 Home Medications Medication Instructions Recorded Confirmed Type naproxen sodium 220 mg capsule 220 mg PO QID PRN 09/01/19 08/27/23 History (Aleve) Exam Resp Effort & Inspection: normal respiratory effort Auscultation: clear to auscultation bilaterally Cardio Rate: regular rate Rhythm: regular rhythm Results Last Vital Signs Temp 36.6 C 08/27/23 06:24 Pulse 77 08/27/23 06:24 Resp 16 08/27/23 06:24 BP 102/65 08/27/23 06:24 Pulse Ox 100 08/27/23 06:24
[2023-08-27 07:31] VITALS: BMI 26.7
[2023-08-27] MEDS: ceFAZolin 2 GM/50 ML BAG IVPB (07:55)
[2023-08-27] MEDS: Lidocaine 1% Multi-Dose W/EPI 1/100,000 50 ML VIAL (07:55)
--- NOTE | 2023-08-27 07:55 | W.ANESVAS ---
Midline Placement Date Performed: 08/27/23 Procedure Time: 07:45 Requesting Provider: Romaine Higginbotham Procedure Location: Operating Room Sedation Given (Indicate Dose Given): No Sedation given Patient Mental Status: Awake Sterility: Hand Hygiene, Surgical Cap, Surgical Mask and Alcohol Laterality: Right Insertion Site: Basilic Midline Device: PowerGlide Pro 20G Catheter Length: 10 cm Midline Procedure Procedure: 1% Lidocaine to skin and subcutaneous tissue with 25g needle (2%) and Catheter placed without resistance Dressing: Tegaderm Applied Blood Return: Present Flushes: Easily Ultrasound: Sterile probe cover and gel used Ultrasound Image Saved?: No Number of Attempts (See previous attempts in note section): 1 Procedure Tolerated: No Complications Procedure Outcome: Successful Procedure Comment:: placed for intraoperative infiltration of primary IV. Performed By: Romaine Higginbotham
[2023-08-27 08:11] VITALS: BP 122/96; PULSE 65; RESP 16; TEMP 36; O2SAT 100
[2023-08-27 08:43] VITALS: BP 125/89; PULSE 70; RESP 16; TEMP 36.4; O2SAT 100
--- NOTE | 2023-08-27 09:08 | W.ANESPOSTOP ---
Postoperative Evaluation Date, Time and Location Date Performed: 08/27/23 Time Performed: 08:13 Patient Location: Day Surgery Unit Vital Signs Most Recent Imported Vital Signs: Most Recent Vital Signs Temp Pulse Resp BP Pulse Ox 36.4 C L 70 16 125/89 100 08/27/23 08:43 08/27/23 08:43 08/27/23 08:43 08/27/23 08:43 08/27/23 08:43 Pain Score Most Recent Pain Score: Most Recent Pain Score Pain Level 0 08/27/23 08:11 Assessment Mental Status: Awake (Alert & Oriented to Patient Baseline) Airway and Respiratory Function: Patent airway with normal (patient baseline) respiratory exam Cardiovascular Function: Hemodynamically Stable Hydration Status: Adequately Hydrated Nausea & Vomiting: No Nausea or Vomiting Pain: Pt. Denies Any Pain Peripheral Nerve Block: Patient did not receive a nerve block Postoperative Comments:: Discussed infiltration care, discussed midline removal with RN at patient bedside (same as PIV). Answered all patient questions.
--- NOTE | 2023-08-27 09:38 | W.PM.OP ---
Date of service: 08/27/23 Time of Service: 07:40 Operative Note Operative Note DATE OF PROCEDURE: 08/27/23 PRE-OP DIAGNOSIS: Left Carpal Tunnel Syndrome POST-OP DIAGNOSIS: same PROCEDURE: Left Endoscopic Carpal Tunnel Release SURGEON: Michael Jeffrey ANESTHESIA TYPE: General:No Airway Refer to Anesthesia Record ESTIMATED BLOOD LOSS: 0 PATHOLOGY: none sent TOURNIQUET TIME: 4 COMPLICATIONS: None Patient was transported to: same day Patient's condition: stable Indications: I have seen Diann in clinic for symptoms of carpal tunnel syndrome. The numbness, tingling, and pain limited function. Clinical exam findings with nerve conduction tests confirmed the diagnosis of carpal tunnel syndrome. Nonoperative measures such as bracing, time, activity modifications had been tried but disability and pain persisted. I discussed carpal tunnel release with the patient. I reviewed the risks of the procedure to include, but not limited to, bleeding, infection, pain, stiffness, incomplete release, damage to nerves or vessels, persistent numbness, recurrence. Despite these risks, the patient elected to proceed. Findings: There was tightened carpal tunnel. This was dilated and released successfully with the endoscopic with increased space within the tunnel. The antebrachial fascia was released proximally freeing the median nerve at the wrist. Procedure Description: Diann was greeted in the preoperative holding area where the correct side was identified and marked. The consent was reviewed with the patient and signed. The history and physical was updated. All questions were answered. She was taken back to the operating room. The patient was placed into the supine position on the operating room table with the left arm on an arm board. A nonsterile tourniquet was placed high onto the arm. All bony prominences were well padded. Prophylactic antibiotics in the form of Cefazolin were administered. The left arm was then prepped with Chloraprep and draped in a standard fashion with stockinette and extremity drape. A timeout to confirm correct identity, side and site, procedure, allergies, anesthesia, and medical concerns was performed. The surgical site was marked in the volar wrist creases in line with the radial border of the fourth ray. This area was anesthetized with approximately 6cc of 1% Lidocaine. The limb was then exsanguinated with an Esmarch. The skin was incised with a 15 blade, approximately 1cm. The skin only was cut and the deeper tissue was dissected bluntly with a tenotomy scissor, avoiding passing nerve and venous structures. The fascia was penetrated and opened bluntly. A two-prong skin hook was placed under this proximal fascial edge. A series of hamate finders were used to identify and dilate the carpal tunnel. Synovial elevator was used to free synovial attachments to the underside of the transverse carpal ligament. My thumb was kept in the palm to janet the distal extent of the carpal tunnel and correctly position the hand. The Microaire endoscope was inserted without difficulty and without resistance. Excellent visualization showed horizontally running fibers of the transverse carpal ligament (TCL). The distal extent of the TCL was visualized and the end of the scope palpated with the thumb. The blade was elevated and withdrawn from distal to proximal. The TCL was split into two flaps. The endoscope was reinserted to confirm complete release and any remnant ligament was incised. The scope was withdrawn and the proximal aspect of the carpal tunnel was grossly inspected and appeared release with the median nerve visible. The antebrachial fascia at the level of the wrist was then freed from the overlying skin and then the underlying median nerve with blunt dissection. This was transected longitudinally for about 3cm proximal to the wrist incision. The wound was then irrigated with easy flow of irrigant distally and proximally. The incision was closed with a single 4-0 Nylon suture. The wound was dressed with Xeroform, Gauze, Kerlix and Jose. The tourniquet was deflated with the initial dressing and held with some pressure. Blood flow returned easily to all digits with capillary refill less than 2 seconds. The suture was removed from the right side. The patient tolerated the procedure well and was returned to the Same Day Surgery area in a stable condition suffering no known complication.
== END 2023-08-27 09:00 | disposition home or self-care (01) ==
PROVIDERS: PCP Nurse Practitioner Family; Visit Provider Student in an Organized Health Care Education/Training Program
PROC: 01N54ZZ Release Median Nerve, Percutaneous Endoscopic Approach (ICD-10-PCS; CPT 29848; principal; 2023-08-27 07:30)
DX: G56.02 Carpal tunnel syndrome, left upper limb (principal)
CPT/HCPCS: 29848; 36410; J0690; J2250; J3010

== ENCOUNTER 2024-05-20 08:07 | Emergency (ER) | payer BC, SELFPAY ==
--- NOTE | 2024-05-20 08:00 | DI.RAD_ITS ---
Exam(s) XR ANKLE RT COMPLETE XR FOOT RT COMPLETE EXAM: XR FOOT RT COMPLETE and XR ankle RT complete CLINICAL HISTORY: RIGHT FOOT PAIN. TECHNIQUE: 2D digital imaging was performed of the right ankle and foot. Six images were obtained. AP, oblique and lateral views were obtained. COMPARISON: There are no priors for comparison. FINDINGS: BONES: No acute fracture is present. No bony destructive lesion is seen. JOINTS: No dislocation present. There is a hallux valgus deformity. There are hammertoe deformities of the 2nd through 5th toes. The ankle joint is well maintained. SOFT TISSUE: There is diffuse soft tissue swelling of the foot. No radiopaque foreign body is identi fied. No soft tissue gas is seen. IMPRESSION: 1. Diffuse soft tissue swelling of the right foot. No radiopaque foreign body or soft tissue gas. 2. No radiographic findings to suggest osteomyelitis. DATA REPOSITORY: RADIATION DOSE DELIVERED:
[2024-05-20 08:08] VITALS: BP 114/90; PULSE 87; RESP 15; TEMP 37; O2SAT 100
[2024-05-20] MEDS: Acetaminophen 500 MG TAB 1000 MG PO (08:21)
--- NOTE | 2024-05-20 08:24 | ED.GENADUL_ITS ---
Discharge Plan Disposition Patient Disposition: Home Condition: Stable Discharge Details Clinical Impression: Wound of right foot, Acute right ankle pain, Ankle swelling Primary Care Provider: Unknown,Unknown ED Provider: Jina Shahid Home Meds and New Rx's Prescriptions: New cephalexin 500 mg capsule 500 mg PO BID 7 Days Qty: 14 0RF No Action naproxen sodium [Aleve] 220 mg Capsule 220 mg PO QID PRN Discharge Instructions Instructions: Wound Infection Additional Instructions: * START ANTIBIOTICS PRESCRIBED * USE CRUTCHES TO HELP WITH AMBULATION NEEDED * NO SIGNS OF SEVERE INFECTION, BONE INFECTION OR JOINT INFECTION BUT RETURN FOR RE-EVALUATION IF SYMPTOMS WORSEN * REFERRAL PLACED FOR FOLLOW UP WITH PODIATRY Stand Alone Forms: Work Release Referrals: Shoshana Wade DPM [[facility] STAFF PHYSICIAN] - [facility] General Date/Time Provider Initiated Documentation: 05/20/24 08:14 . Limitations to Documentation: no limitations . Information obtained by: patient . HPI Narrative: 49-year-old female with out significant past medical history presents for evaluation of right ankle pain and swelling. She reports for about a week she has been having a wound on the bottom of her foot that she has been treating with Epsom salts, elevation and ice pack. She reports that she is still expressing some purulent drainage. She denies any fever or chills. She states that because of this wound on the bottom of her foot she has been walking funny and she thinks that this is caused her to have ankle pain. She denies any fever or chills. Denies any history of diabetes. Denies any acute known trauma to the ankle. Related Data Home Medications ?Medication ?Instructions ?Recorded ?Confirmed naproxen sodium 220 mg capsule 220 mg PO QID PRN 09/01/19 05/20/24 (Aleve) cephalexin 500 mg capsule 500 mg PO BID 7 days #14 caps 05/20/24 Previous Rx's ?Medication ?Instructions ?Recorded cephalexin 500 mg capsule 500 mg PO BID 7 days #14 caps 05/20/24 Allergies Allergy/AdvReac Type Severity Reaction Status Date / Time codeine AdvReac Intermediate Skin Rash Unverified 05/20/24 08:13 General Stated Complaint: Orthopedic WILFRIDO: 4 Exam Narrative Exam Narrative: Review of Systems: All systems reviewed & are unremarkable except as noted in HPI and below Well-developed, no acute distress Afebrile NCAT PERRL, normal conjunctiva RRR Unlabored respiratory effort Nondistended abdomen Right ankle with swelling over the lateral malleolus with effusion appreciated, there is no tenderness or swelling over the medial malleolus. There is full range of motion of the ankle without significant pain or limitation the foot is not significantly swollen but on the plantar surface under the great toe there is a callus area that is slightly swollen, no appreciable discharge, or redness, but patient has significant tenderness with palpation at this area. no focal neurologic deficits Appropriate mood and affect Course Vital Signs Vital signs: Vital Signs Temperature 37.0 C 05/20/24 08:08 Pulse 87 05/20/24 08:08 Respiratory Rate 15 05/20/24 08:08 Blood Pressure 114/90 05/20/24 08:08 Pulse Oximetry 100 05/20/24 08:08 Temperature 37.0 C 05/20/24 08:08 Temperature Source Temporal Artery Scan 05/20/24 08:08 Pulse 87 05/20/24 08:08 Respiratory Rate 15 05/20/24 08:08 Respiratory Effort Normal 05/20/24 08:12 Blood Pressure 114/90 05/20/24 08:08 Blood Pressure Position Sitting 05/20/24 08:08 Pulse Oximetry 100 05/20/24 08:08 Oxygen Delivery Method Room Air 05/20/24 08:08 Oxygen Flow Rate 0 05/20/24 08:08 Pain Level 3 05/20/24 08:17 Comment cut and infected food painful-8 05/20/24 08:08 Medical Decision Making Emergent evaluation of right foot and ankle pain. Initial differential includes infectious etiology, doubt septic arthritis given her full range of motion and ability to bear weight, reactive arthritis, cellulitis. Plan for lab work and imaging of the area. She has no known history of diabetes, but has never been tested. Lab work reviewed. There is no elevation white blood cell count, ESR CRP. This makes me highly suspicious for osteomyelitis or septic arthritis. Her glucose is normal, lowering likelihood for diabetes. X-ray imaging does demonstrate soft tissue swelling without any bony change or foreign body. Given her plantar wound, will start Keflex and have referred to podiatry for follow-up. Provided crutches so that she ambulates with a more normal gait to use as needed. Quality:SDOH Health Related Social Needs: No Data to Display PFSH All Active Problems (Updated 05/20/24 @ 09:34 by Jina Shahid MD) Ankle swelling (Acute) Acute right ankle pain (Acute) Wound of right foot (Acute) Left carpal tunnel syndrome (Acute) s/p L ECTR DOS: 08/27/23 Right carpal tunnel syndrome (Acute) s/p right ECTR DOS: 08/20/23 Bilateral carpal tunnel syndrome (Acute) Sprain of left hand (Acute) Medical History Tobacco dependence Idiopathic thrombocytopenic purpura (ITP) Perimenopausal Wrist pain Surgical History H/O carpal tunnel repair right Social History Smoking/Tobacco Use Status: Current every day Tobacco Type: cigarettes Smoking risk assessment performed?: Yes Alcohol Intake: current Alcohol Intake frequency: holidays/special occasions only Alcohol type: hard liquor Drug use: Never Substance use type: does not use Housing: house Do you feel safe at home: Yes Do you feel safe in your relationship?: Yes PAWSS Have you Been Recently Intoxicated or Drunk Within the Last 30 days?: No Have you Ever Experienced Previous Episodes of Alcohol Withdrawal?: No Have you ever Experienced Withdrawal Seizures?: No Have you ever Experienced Delirium Tremens(DT)s?: No Have you ever undergone Alcohol Rehabilitation Treatment (i.e, inpt ot outpatient treatment programs)?: No Have you ever Experienced Blackouts?: No Have you ever Combined Alcohol with other Downers within the last 90 days?: No Have you ever Combined Alcohol with any other Substance of Abuse during the last 90 days?: No Result: 0
[2024-05-20 08:52] LABS: Abs Immature Grans 0.03 10^3/uL (0.0-0.06); Absolute Basophil Count 0.03 10^3/uL (0.0-0.2); Absolute Eosinophil Count 0.02 10^3/uL (0.0-0.7); Absolute Lymphocyte Count 1.65 10^3/uL (1.2-3.4); Absolute Monocyte Count 0.71 10^3/uL (0.1-0.8); Absolute Neutrophil Count 3.99 10^3/uL (1.2-6.7); Basophils % 0.5 %; Eosinophils % 0.3 %; HCT 40.8 % (36.0-46.0); HGB 13.3 g/dL (11.2-15.7); Immature Grans % 0.5 %; Lymphocytes % 25.7 %; MCHC 32.6 % (32.0-36.0); MCV 98 fL (80-95); MPV 12.8 fL (8.0-11.0); Platelet Count 104 10^3/uL (130-400); RBC 4.16 10^6/uL (3.93-5.22); RDW 13.5 % (11.7-14.6); RDW-SD 49.8 fL; WBC 6.43 10^3/uL (4.4-10.8)
[2024-05-20 08:55] LABS: ESR 3 mm/hr (0-20)
[2024-05-20 09:18] LABS: ALT 18 U/L (14-59); AST 7 U/L (15-37); Albumin 3.8 g/dL (3.4-5.0); Alkaline Phosphatase 75 U/L (46-116); Anion Gap 6.8 mmol/L (3-11); BUN 12 mg/dL (7-18); Bilirubin, Total 0.34 mg/dL (0.2-1.0); CO2 29.2 mmol/L (21.0-32.0); CREATININE 0.8 mg/dL (0.55-1.02); Calcium 9.1 mg/dL (8.5-10.1); Chloride 106 mmol/L (98-107); Glucose 79 mg/dL (74-106); Potassium 3.9 mmol/L (3.5-5.1); Sodium 142 mmol/L (136-145); Total Protein 6.8 g/dL (6.4-8.2)
[2024-05-20 09:21] LABS: C-Reactive Protein < 0.50 mg/dL (<or=0.5)
== END 2024-05-20 09:48 | disposition home or self-care (01) ==
PROVIDERS: Emergency Provider Emergency Medicine
DX: S91.301A Unspecified open wound, right foot, initial encounter (principal); M25.571 Pain in right ankle and joints of right foot; M25.471 Effusion, right ankle; X58.XXXA Exposure to other specified factors, initial encounter
CPT/HCPCS: 36415; 80053; 85652; 99284; 73610; 73630; 85025; 86140; 99283

== ENCOUNTER 2024-06-11 11:16 | Emergency (ER) | payer BC, SELFPAY ==
[2024-06-11 11:19] VITALS: BP 108/57; PULSE 86; RESP 15; TEMP 36.4; O2SAT 97
--- NOTE | 2024-06-11 12:23 | ED.GENADUL_ITS ---
Discharge Plan Disposition Patient Disposition: Home Condition: Stable Discharge Details Clinical Impression: Infection of right foot Primary Care Provider: Chin Ellis ED Provider: Alfa Ventura Home Meds and New Rx's Prescriptions: New cephalexin 500 mg capsule 500 mg PO QID Qty: 39 0RF Continued naproxen sodium [Aleve] 220 mg Capsule 220 mg PO QID PRN No Action gabapentin 300 mg capsule 300 mg PO QHS Qty: 14 0RF Discharge Instructions Additional Instructions: Please take full course of antibiotic as prescribed. Please try to keep your foot elevated and avoid activities that worsen pain or swelling. Please follow-up with podiatry. Call tomorrow to arrange follow-up appointment for incision and drainage. Dr. Wade will look to schedule your procedure in the OR next week. Please contact your primary care physician to arrange follow-up. Return to the ER immediately for any worsening or new concerning symptoms. Stand Alone Forms: Work Release Referrals: Shoshana Wade DPM [[facility] STAFF PHYSICIAN] - Discharge Data Discharge Date/Time-TO BE ENTERED AT DEPARTURE: 06/11/24 12:46 HPI General Mode of arrival: ambulatory . Date/Time Provider Initiated Documentation: 06/11/24 11:49 . Limitations to Documentation: no limitations . Information obtained by: patient . HPI Narrative: 49-year-old female presents with chief complaint of right foot swelling and pain with concern for infection. Symptoms started around 05/17 and has progressively worsened. She was seen here in the Emergency Department on 05/20 and started on Keflex. She completed course of Keflex without resolution of symptoms. No associated fever. Related Data Home Medications ?Medication ?Instructions ?Recorded ?Confirmed naproxen sodium 220 mg capsule 220 mg PO QID PRN 09/01/19 06/18/24 (Aleve) cephalexin 500 mg capsule 500 mg PO QID #39 caps 06/11/24 06/18/24 gabapentin 300 mg capsule 300 mg PO QHS #14 caps 06/18/24 06/18/24 Previous Rx's ?Medication ?Instructions ?Recorded cephalexin 500 mg capsule 500 mg PO QID #39 caps 06/11/24 gabapentin 300 mg capsule 300 mg PO QHS #14 caps 06/18/24 Allergies Allergy/AdvReac Type Severity Reaction Status Date / Time codeine AdvReac Intermediate Skin Rash Verified 06/16/24 06:17 General Stated Complaint: RashLesion WILFRIDO: 4 Review of Systems Constitutional Constitutional: Denies fever(s) Exam Cardio Rate: regular rate Rhythm: regular rhythm Heart Sounds: S1 normal and S2 normal Extrem Right lower extremity: foot Details: normal capillary refill, tenderness (plantar foot), toes with normal ROM, vascular exam Details: dorsalis pedis pulse present and other (swelling and erythema ball of foot with draining wound ) Course Vital Signs Vital signs: Vital Signs Temperature 36.4 C L 06/11/24 11:19 Pulse 86 06/11/24 11:19 Respiratory Rate 15 06/11/24 11:19 Blood Pressure 108/57 L 06/11/24 11:19 Pulse Oximetry 97 06/11/24 11:19 Temperature 36.4 C L 06/11/24 11:19 Temperature Source Tympanic 06/11/24 11:19 Pulse 86 06/11/24 11:19 Respiratory Rate 15 06/11/24 11:19 Respiratory Effort Normal 06/11/24 11:25 Blood Pressure 108/57 L 06/11/24 11:19 Pulse Oximetry 97 06/11/24 11:19 Pain Level 4 06/11/24 11:19 Lab/Test Results Lab/Test Results: 06/11/24 12:12 Foot - Right Skin Culture - Pending Medical Decision Making 49yo female with infection of right ball of foot, symptoms persistent and worse after completing course of keflex. POCUS performed and no superficial abscess. Wound culture performed on purulent discharge. I called and spoke with Dr. Wade, discussed ED presentation and course. She recommends outpatient followup next week for I/D. I will restart keflex. Usual customary discharge instructions were reviewed with patient. Quality:SDOH Health Related Social Needs: No Data to Display PFSH All Active Problems (Updated 06/20/24 @ 00:01 by GABRIELA STROUD) Post-op pain (Acute) Infection of right foot (Acute) Congenital bilateral pes cavus (Acute) Pain in joint of right foot (Acute) Abscess of foot (Acute) Cellulitis (Acute) Left carpal tunnel syndrome (Acute) s/p L ECTR DOS: 08/27/23 Right carpal tunnel syndrome (Acute) s/p right ECTR DOS: 08/20/23 Bilateral carpal tunnel syndrome (Acute) Sprain of left hand (Acute) Medical History Tobacco dependence Idiopathic thrombocytopenic purpura (ITP) Perimenopausal Wrist pain Surgical History H/O carpal tunnel repair right Social History Smoking/Tobacco Use Status: Current every day Tobacco Type: cigarettes Smoking risk assessment performed?: Yes Alcohol Intake: current Alcohol Intake frequency: holidays/special occasions only Alcohol type: hard liquor Drug use: Never Substance use type: does not use Housing: house Do you feel safe at home: Yes Do you feel safe in your relationship?: Yes PAWSS Have you Been Recently Intoxicated or Drunk Within the Last 30 days?: Yes Have you Ever Experienced Previous Episodes of Alcohol Withdrawal?: No Have you ever Experienced Withdrawal Seizures?: No Have you ever Experienced Delirium Tremens(DT)s?: No Have you ever undergone Alcohol Rehabilitation Treatment (i.e, inpt ot outpatient treatment programs)?: No Have you ever Experienced Blackouts?: No Have you ever Combined Alcohol with other Downers within the last 90 days?: No Have you ever Combined Alcohol with any other Substance of Abuse during the last 90 days?: No Positive Blood Alcohol level on Presentation? [PCS.BAL]: No Evidence of Increased Autonomic Activity (i.e. HR>120, tremor, sweating, agitation, nausea)?: No Result: 1
[2024-06-11] MEDS: Cephalexin 500 MG CAP PO (12:34)
[2024-06-11 12:44] VITALS: BP 152/100; PULSE 67; RESP 16; TEMP 36.5; O2SAT 100
== END 2024-06-11 12:46 | disposition home or self-care (01) ==
PROVIDERS: Emergency Provider Student in an Organized Health Care Education/Training Program; PCP Nurse Practitioner Family
DX: M25.571 Pain in right ankle and joints of right foot (principal); L08.9 Local infection of the skin and subcutaneous tissue, unspecified
CPT/HCPCS: 87077; 99283; 87070; 87186

== ENCOUNTER 2024-06-16 06:07 | Day surgery (SDC) | payer BC, SELFPAY ==
--- NOTE | 2024-06-15 18:48 | ANES.PREOP_ITS ---
General Info Date of Service Date Performed: 06/16/24 Height: 5 ft 8 in Weight: 72.3 kg Body Mass Index (BMI): 24.2 Surgical Procedure: Operation Date: 06/16/24 07:40 Proposed Procedure Side Surgeon p I+D right foot Right Shoshana Wade DPM Meds Allergies and Home Medications Allergies Allergy/AdvReac Type Severity Reaction Status Date / Time codeine AdvReac Intermediate Skin Rash Verified 06/16/24 06:17 Home Medication ?Medication ?Instructions ?Recorded naproxen sodium 220 mg capsule 220 mg PO QID PRN 09/01/19 (Aleve) cephalexin 500 mg capsule 500 mg PO QID #39 caps 06/11/24 Current Visit Medications: Current Medications Generic Name Dose Route Start Last Admin Trade Name Freq PRN Reason Stop Dose Admin Ringer's Solution 1,000 mls @ 30 mls/hr 06/15/24 06:00 IV 07/12/24 23:59 INFUSION DINORAH IV Miscellaneous Supplies 1 each 06/15/24 06:00 Iv Access IV 07/12/24 23:59 DIRECTED DINORAH Sodium Chloride 0 ml 06/15/24 06:00 Normal Saline Flush 10 Ml Syr IV 07/12/24 23:59 PRN PRN Sodium Chloride 0 ml 06/15/24 06:00 Normal Saline 10 Ml Vial IJ 07/12/24 23:59 DIRECTED PRN Sterile Water 0 ml 06/15/24 06:00 Water,Injection,Sterile 10 Ml Vial IJ 07/12/24 23:59 DIRECTED PRN PFSH Active Problems Active Problems: Problem Status Onset Code Infection of right foot Acute L08.9 Congenital bilateral pes cavus Acute Q66.71, Q66.72 Pain in joint of right foot Acute M25.571 Abscess of foot Acute L02.619 Cellulitis Acute L03.90 Ankle swelling Acute M25.473 Acute right ankle pain Acute M25.571 Wound of right foot Acute S91.301A Left carpal tunnel syndrome Acute G56.02 Right carpal tunnel syndrome Acute G56.01 Bilateral carpal tunnel syndrome Acute G56.03 Sprain of left hand Acute S63.92XA Medical History Medical History Tobacco dependence Idiopathic thrombocytopenic purpura (ITP) Perimenopausal Wrist pain Medical History Comments:: 11/21/23 - pt reports she has smoked 2 cigarettes Surgical History Surgical History H/O carpal tunnel repair right Tobacco Smoking/Tobacco Use Status: Current every day Tobacco Type: cigarettes Alcohol Alcohol Intake: current Alcohol intake frequency: holidays/special occasions only Alcohol type: hard liquor Substance Use Substance use: Never Substance use type: does not use Vital Signs and Lab Results Vital Signs Most Recent Vital Signs in EMR: Temp Pulse Resp BP Pulse Ox 36.4 C L 80 16 102/67 99 06/16/24 06:18 06/16/24 06:18 06/16/24 06:18 06/16/24 06:18 06/16/24 06:18 Lab Results Blood Type / Crossmatch: No Data to Display Complete Blood Count: White Blood Count 6.43 10^3/uL (4.4-10.8) 05/20/24 08:44 Red Blood Count 4.16 10^6/uL (3.93-5.22) 05/20/24 08:44 Hemoglobin 13.3 g/dL (11.2-15.7) 05/20/24 08:44 Hematocrit 40.8 % (36.0-46.0) 05/20/24 08:44 Platelet Count 104 10^3/uL (130-400) L 05/20/24 08:44 Complete Metabolic Panel: Sodium 142 mmol/L (136-145) 05/20/24 08:44 Potassium 3.9 mmol/L (3.5-5.1) 05/20/24 08:44 Chloride 106 mmol/L (98-107) 05/20/24 08:44 Carbon Dioxide 29.2 mmol/L (21.0-32.0) 05/20/24 08:44 BUN 12 mg/dL (7-18) 05/20/24 08:44 Creatinine 0.8 mg/dL (0.55-1.02) 05/20/24 08:44 Est GFR (CKD-EPI 2020) 91.40 (mL/min/1.73m2) 05/20/24 08:44 Calcium 9.1 mg/dL (8.5-10.1) 05/20/24 08:44 Albumin 3.8 g/dL (3.4-5.0) 05/20/24 08:44 Glucose 79 mg/dL (74-106) 05/20/24 08:44 C-Reactive Protein < 0.50 mg/dL (<or=0.5) 05/20/24 08:44 Liver Function Panel: Alanine Aminotransferase (ALT/SGPT) 18 U/L (14-59) 05/20/24 08: 44 Aspartate Amino Transf (AST/SGOT) 7 U/L (15-37) L 05/20/24 08:4 4 Coagulation Panel: No Data to Display Cardiac Panel: No Data to Display Arterial Blood Gas: No Data to Display Venous Blood Gas: No Data to Display Pancreas Panel: No Data to Display Thyroid Panel: No Data to Display Infectious Disease: No Data to Display Blood Cultures: No Data to Display Toxicology Panel: No Data to Display Panel: No Data to Display Anesthesia Assessment and Plan Anesthesia History Personal History: No History of Anesthesia Complications Family History: No Family History of Anesthesia Complications Exercise Tolerance Exercise Tolerance: Metabolic Equivalents>4 Cardiac & Pulmonary Exam Cardiac Exam: Normal S1/S2 Heart Sounds Pulmonary Exam: Clear Bilateral Breath Sounds Implantable Cardiac Device Does patient have a Pacemaker or an ICD?: No Airway Exam Known Difficult Airway: No Mallampati Class: 1 Mouth Opening: Normal (> 3cm) Thyromental Distance: Greater than 3 cm Neck Range of Motion: Full ROM Neck Circumference: Normal Teeth Condition: Removable Dentures/Plates Upper and Edentulous ASA Classification ASA Score: ASA 2 Emergency Case?: No NPO Status NPO Status: NPO Clears >2 hours, Solids >8 hours Status Status: Not Relevant due to Medical History Anesthesia Plan Resuscitation Status: Full Code Anesthesia Technique: MAC Anesthesia Airway Planned: Natural Airway Monitors Used: Standard Monitors Preoperative Comments:: 49 yo female for foot I/D. Sig PMHx: ITP, smoker daily, occ EtOH. Previous Anes: - ECTR, fent/midaz, prop, no issues x 2.
[2024-06-16 06:18] VITALS: BP 102/67; PULSE 80; RESP 16; TEMP 36.4; O2SAT 99
[2024-06-16] MEDS: Lactated Ringers 1,000 ML 30 ML IV (06:38)
[2024-06-16 06:55] VITALS: BMI 24.2
--- NOTE | 2024-06-16 07:28 | W.PREOPHP ---
Assessment and Plan Assessment and plan (1) Infection of right foot: Status: Acute (2) Abscess of foot: Status: Acute (3) Cellulitis: Status: Acute (4) Wound of right foot: Status: Acute (5) Tobacco dependence: Assessment and plan: Patient seen and evaluated today. She presents with recurrent infection to the right first metatarsophalangeal joint plantarly with hyperkeratosis/plantar verruca. She has been to the ER for this twice at this time. She has failed antibiotics twice. Unfortunately, ultrasound failed to demonstrate any underlying abscess however considering that she has had infection here twice an exploratory incision and drainage is warranted and medically necessary. I discussed this in detail with the patient. I discussed all risks, benefits and possible complications including but not limited to pain, nerve pain, delayed healing, nonhealing, scar tissue problems, residual pain postoperatively. Patient was advised that I may not be able to find any abscess to the right first metatarsophalangeal joint. Discussed masking cessation with the patient as well. Discussed risks for delayed healing with long-term history of smoking which she states that she has been smoking since she was 18 years and smokes almost a pack a day. Patient has been n.p.o. midnight. Cleared for the procedure at this time. Discussed postoperative protocol with the patient as well. History of Present Illness Narrative: 49-year-old female patient without significant past medical history here for preop history and physical for surgery today for recurrent infection to the right first metatarsophalangeal joint. Patient has failed antibiotics twice. She was seen in the ER recently this past week and given antibiotics again for cellulitis of the first metatarsophalangeal joint plantarly at the location of hyperkeratotic/verrucous tissue. She states that the redness and swelling have resolved considerably, denies any purulence at this time. She does admit to smoking. Reports previous surgery for the wrist which went uneventfully. Denies any anesthesia complications. Review of Systems Constitutional Constitutional: Denies body ache(s), Denies chills, Denies fever(s) and Denies weakness Cardiovascular Cardiovascular: Denies acrocyanosis, Denies chest pain, Denies chest pain at rest, Denies irregular heart rhythm and Denies dyspnea Respiratory Respiratory: Denies dyspnea Musculoskeletal Comments: Pain at the plantar aspect of the right first metatarsophalangeal joint with recurrent infections Neurologic Neurologic: Denies paresthesias and Denies weakness PFSH All Active Problems Infection of right foot (Acute) Congenital bilateral pes cavus (Acute) Pain in joint of right foot (Acute) Abscess of foot (Acute) Cellulitis (Acute) Ankle swelling (Acute) Acute right ankle pain (Acute) Wound of right foot (Acute) Left carpal tunnel syndrome (Acute) s/p L ECTR DOS: 08/27/23 Right carpal tunnel syndrome (Acute) s/p right ECTR DOS: 08/20/23 Bilateral carpal tunnel syndrome (Acute) Sprain of left hand (Acute) Medical History Tobacco dependence Idiopathic thrombocytopenic purpura (ITP) Perimenopausal Wrist pain Surgical History H/O carpal tunnel repair right Social History Smoking/Tobacco Use Status: Current every day Tobacco Type: cigarettes Smoking risk assessment performed?: Yes Alcohol Intake: current Alcohol Intake frequency: holidays/special occasions only Alcohol type: hard liquor Drug use: Never Substance use type: does not use Housing: house Do you feel safe at home: Yes Do you feel safe in your relationship?: Yes Meds Allergies and Home Medications Allergies Allergy/AdvReac Type Severity Reaction Status Date / Time codeine AdvReac Intermediate Skin Rash Verified 06/16/24 06:17 Home Medications ?Medication ?Instructions ?Recorded ?Confirmed ?Type naproxen sodium 220 mg capsule 220 mg PO QID PRN 09/01/19 06/12/24 History (Aleve) cephalexin 500 mg capsule 500 mg PO QID #39 caps 06/11/24 06/16/24 Rx Exam Resp Effort & Inspection: normal respiratory effort, able to speak in complete sentences, abnormal respiratory pattern and no audible wheezes Auscultation: clear to auscultation bilaterally Cardio Rate: regular rate Rhythm: regular rhythm Heart Sounds: S1 normal and S2 normal Extrem Other: Right lower extremity physical exam: Derm: Hyperkeratosis with pain on ambulation noted to the plantar aspect of the right first metatarsophalangeal joint, there is no erythema noted at this time no purulence no malodor there is edema and tenderness to palpation noted here. MSK: Pes cavus foot structure noted with pain on palpation of the plantar aspect of the right first metatarsophalangeal joint. Vascular: DP, PT pulses are palpable to the right foot. CFT is less than 3 seconds and brisk. Hair growth present. Light touch sensation is present Results Last Vital Signs Temp 97.5 F L 06/16/24 06:18 Pulse 80 06/16/24 06:18 Resp 16 06/16/24 06:18 BP 102/67 06/16/24 06:18 Pulse Ox 99 06/16/24 06:18
[2024-06-16] MEDS: ceFAZolin 2 GM/50 ML BAG 100 GM (07:39)
[2024-06-16] MEDS: Lidocaine 1% Pres-Free 30 ML VIAL (07:55)
--- NOTE | 2024-06-16 08:00 | SOFT_PTH ---
PATIENT: Diann Roberts LOC: [facility] U#:[id number] AGE/SX: 49/F ROOM: RE06/16/[address]: Shoshana Wade DPM : 1975 BED: DIS: 06/16/2024 SPEC #: [id number] RECD: 06/16/24 12:46 STATUS: JIMMY REQ #: [id number] DEB: 06/16/24 08:[address]: Shoshana Wade DEPT: Surgical Specimen RECD BY: Abbie Jimenes ENTERED: 06/16/24 12:47 SP TYPE: SOFT OTHR DR: Chin Marley, STEPHANE Tissues: 1 - SOFT TISSUE MISC (INC. LIPOMA) Procedures: GROSS AND MICRO LEVEL 3 Comments: [id number]
[2024-06-16 08:34] VITALS: BP 93/65; PULSE 62; RESP 16; TEMP 35.9; O2SAT 99
--- NOTE | 2024-06-16 08:38 | W.PM.DSUDISC ---
Date of service: 06/16/24 Time of Service: 07:30 Discharge Plan Disposition Patient Disposition: Home Condition: Stable Discharge Details Attending Provider: Shoshana Wade Primary Care Provider: Chin Ellis Home Meds and New Rx's Prescriptions: No Action naproxen sodium [Aleve] 220 mg Capsule 220 mg PO QID PRN cephalexin 500 mg capsule 500 mg PO QID Qty: 39 0RF Discharge Instructions Additional Instructions: Please keep your right foot dressings clean, dry and intact. Do not remove the dressings. Apply a bag over the foot for showers. Please remain strictly nonweightbearing to the right foot. You may use crutches or knee scooter as needed. Please keep the cam boot on anytime ambulatory. Please apply ice behind the ankle and knee for 10 minutes on 20 minutes off [id number]. You have any fevers, chills or diarrhea please call us. Stand Alone Forms: Podiatry Instructions-DSU Equipment/Supplies: Non-Weight Bearing Crutches Activity:: Elevate Remove Dressings/Wound Care:: Do Not Remove Shower/Bathe:: Cover Diet:: Normal Diet DS: Diagnosis Discharge Diagnosis (1) Infection of right foot: Status: Acute (2) Abscess of foot: Status: Acute (3) Cellulitis: Status: Acute (4) Wound of right foot: Status: Acute (5) Tobacco dependence:
--- NOTE | 2024-06-16 08:40 | ROE_ITS ---
Date of service: 06/16/24 Time of Service: 07:30 Operative Note Operative Note DATE OF PROCEDURE: 06/16/24 PRE-OP DIAGNOSIS: Abscess, right foot POST-OP DIAGNOSIS: same (Abscess, possible foreign body, right foot) PROCEDURE: Incision and drainage/removal of foreign body granuloma, right foot SURGEON: Shoshana Wade ANESTHESIA TYPE: Local By Surgeon (20 mL 1% lidocaine plain preop) Refer to Anesthesia Record ESTIMATED BLOOD LOSS: 0 PATHOLOGY: none sent (Granuloma, right foot) COMPLICATIONS: None Patient was transported to: same day Patient's condition: stable Indications: This is a 49-year-old female patient with recurrent infection to the right first metatarsophalangeal joint plantarly. Patient has failed antibiotics twice. At this time an exploratory incision and drainage is medically warranted to see why she keeps getting an infection here as well as prevent infection any further as well as osteomyelitis. I discussed the procedure in detail with the patient today. She was advised that currently there is no erythema however edema and pain is present. I discussed the risks, benefits and possible complications of the procedure including but not limited to pain, nerve pain, delayed healing, nonhealing patient consented to the procedure consent form signed reviewed in the chart. No contraindications noted to the procedure at this time Findings: Abscess, foreign body granuloma Procedure Description: Patient was identified in preop holding. Site was marked. Patient was then brought to the operating room placed on the operating table in supine position. After induction of anesthesia a right ankle tourniquet was applied. Local anesthesia was obtained using 20 mL of lidocaine plain 1% preoperatively. The right foot was then scrubbed, prepped and draped in the usual aseptic manner. Attention was then directed to the plantar aspect of the right first metatarsophalangeal joint where hyperkeratosis was noted at the point of maximal tenderness. Using a sterile #15 blade the hyperkeratotic tissue was debrided today and there was a yellow purulent drainage immediately expressed. Therefore, a 3 to 4 cm linear longitudinal incision was made directly at this site which demonstrated further purulence as well as white granulomatous tissue. Cultures were taken and sent. Soft tissue specimen of the granulomatous/necrotic tissue was obtained and sent to pathology as well. All necrotic nonviable tissue was sharply excised from the operative site and sent to pathology. The incision was deepened until healthy fatty tissue was noted. No further purulence was noted at this time and therefore the incision was not d eepened to the level of the joint as this would potentially introduce infection to the joint. Next, the site was then irrigated with 3 L bag of sterile saline. Next, the skin was then reapproximated using 3-0 nylon. The tourniquet was then deflated. Dressings were applied with Betadine soaked Adaptic, 4 x 4, Kerlix and an Jose wrap. Patient tolerated procedure and anesthesia well with vital signs stable and vascular status intact the right foot. She was transferred to same-day surgery for further monitoring to be discharged home in stable. Patient was sent Percocet for pain control which she states that she would like to try below she has had an allergy to codeine in the past. She was encouraged to take Benadryl if she notices any allergy symptoms. Advised to call 911 immediately if she were to notice any difficulty breathing or swelling in her face or tongue. Patient has an appointment to follow-up on . She is to remain strictly nonweightbearing to the right lower extremity. She will require time off of work for this duration.
--- NOTE | 2024-06-16 08:51 | W.ANESPOSTOP ---
Postoperative Evaluation Date, Time and Location Date Performed: 06/16/24 Time Performed: 08:51 Patient Location: Day Surgery Unit Vital Signs Most Recent Imported Vital Signs: Most Recent Vital Signs Temp Pulse Resp BP Pulse Ox 35.9 C L 62 16 93/65 L 99 06/16/24 08:34 06/16/24 08:34 06/16/24 08:34 06/16/24 08:34 06/16/24 08:34 Pain Score Most Recent Pain Score: Most Recent Pain Score Pain Level 0 06/16/24 08:34 Assessment Mental Status: Awake (Alert & Oriented to Patient Baseline) Airway and Respiratory Function: Patent airway with normal (patient baseline) respiratory exam Cardiovascular Function: Hemodynamically Stable Hydration Status: Adequately Hydrated Nausea & Vomiting: No Nausea or Vomiting Pain: Pt. Denies Any Pain Peripheral Nerve Block: Patient did not receive a nerve block
[2024-06-16 09:08] VITALS: BP 114/61; PULSE 62; RESP 16; TEMP 36; O2SAT 99
[2024-06-16] MEDS: Ketorolac 10 MG TAB PO (09:48)
== END 2024-06-16 10:32 | disposition home or self-care (01) ==
PROVIDERS: PCP Nurse Practitioner Family; Visit Provider Podiatrist
PROC: (CPT 10061; principal; 2024-06-16 07:30)
DX: L02.611 Cutaneous abscess of right foot; M60.271 Foreign body granuloma of soft tissue, not elsewhere classified, right ankle and foot; F17.210 Nicotine dependence, cigarettes, uncomplicated; L85.1 Acquired keratosis [keratoderma] palmaris et plantaris
CPT/HCPCS: 10061; 00123; 87077; 87070; 87075; 87186; 87205; 88304; J0690; J2250; J2371; J2405; J2704; J3010

== ENCOUNTER 2024-06-30 01:19 | Outpatient (CLI) | payer BC, SELFPAY ==
--- NOTE | 2024-06-30 06:45 | DI.RAD_ITS ---
Exam(s) XR FOOT RT COMPLETE EXAM: XR FOOT RT COMPLETE CLINICAL HISTORY: Post op,infection of rt foot,l08.9. TECHNIQUE: 2D digital imaging was performed of the right foot. Three images were obtained. AP, obl ique and lateral views were obtained. COMPARISON: CR XR FOOT RT COMPLETE from 05/20/2024 FINDINGS: BONES: No acute fracture is present. No bony destructive lesion is seen. JOINTS: No dislocation present. The joint spaces are well maintained. SOFT TISSUE: There is soft tissue swelling of the foot. No soft tissue gas is identified. IMPRESSION: No radiographic evidence of acute osteomyelitis. DATA REPOSITORY: RADIATION DOSE DELIVERED:
== END 2024-06-30 01:39 ==
LOC: DI 01:19
PROVIDERS: PCP Nurse Practitioner Family; Visit Provider Podiatrist
DX: L08.9 Local infection of the skin and subcutaneous tissue, unspecified (principal); Z98.890 Other specified postprocedural states
CPT/HCPCS: 73630

== ENCOUNTER 2024-08-27 02:12 | Outpatient (CLI) | payer BC, SELFPAY ==
--- NOTE | 2024-08-27 07:15 | DI.RAD_ITS ---
Exam(s) XR FOOT RT COMPLETE EXAM: XR FOOT RT COMPLETE CLINICAL HISTORY: Pain in right foot,stress fx,m84.374a. TECHNIQUE: 2D digital imaging was performed. Three views. COMPARISON: CR XR FOOT RT COMPLETE from 06/30/2024 FINDINGS: BONES: No acute fracture is present. No bony destructive lesion is seen. JOINTS: No dislocation present. Hammertoe deformities. Mild equinus deformity. Minimal degenerativ e changes. SOFT TISSUE: Diffuse soft tissue swelling. No foreign body or abnormal gas. IMPRESSION: Soft tissue swelling. Mild equinus deformity. Hammertoes. DATA REPOSITORY: RADIATION DOSE DELIVERED:
== END 2024-08-27 02:32 ==
LOC: DI 02:12
PROVIDERS: PCP Nurse Practitioner Family; Visit Provider Podiatrist
DX: M84.374D Stress fracture, right foot, subsequent encounter for fracture with routine healing (principal); X58.XXXD Exposure to other specified factors, subsequent encounter
CPT/HCPCS: 73630

== ENCOUNTER 2025-04-26 01:49 | Outpatient (CLI) | payer BC, SELFPAY ==
[2025-04-26 12:49] LABS: ALT 30 U/L (14-59); AST 10 U/L (15-37); Albumin 4.0 g/dL (3.4-5.0); Alkaline Phosphatase 86 U/L (46-116); Anion Gap 7.1 mmol/L (3-11); BUN 8 mg/dL (7-18); Bilirubin, Total 0.6 mg/dL (0.2-1.0); CO2 29.9 mmol/L (21.0-32.0); Calcium 9.3 mg/dL (8.5-10.1); Calculated LDL 89 mg/dL (<100); Chloride 106 mmol/L (98-107); Cholesterol 150 mg/dL (<200); Estimated GFR 90.83 (mL/min/1.73m2); Glucose 89 mg/dL (74-106); HDL Cholesterol 50 mg/dL (>or=50); Potassium 3.7 mmol/L (3.5-5.1); Sodium 143 mmol/L (136-145); TSH (W/Ref FT4) 1.63 uIU/mL (0.36-3.74); Total Protein 7.1 g/dL (6.4-8.2); Triglyceride 59 mg/dL (<150)
[2025-04-26 18:56] LABS: HIV-1/2 Ag & Ab Screen Negative (Negative)
[2025-04-26 18:57] LABS: Hepatitis C Ab w Rflx HCV PCR Negative (Negative)
[2025-04-26 21:34] LABS: HBs Antibody, Quant 69.0 mIU/mL (See Note); Hepatitis B Surface Antigen Negative (Negative)
== END 2025-04-26 01:50 | disposition home or self-care (01) ==
LOC: LOS 01:50
PROVIDERS: PCP Nurse Practitioner Family; Visit Provider Nurse Practitioner Family
DX: Z11.4 Encounter for screening for human immunodeficiency virus [HIV] (principal); Z13.220 Encounter for screening for lipoid disorders; Z11.59 Encounter for screening for other viral diseases; R63.4 Abnormal weight loss
CPT/HCPCS: 36415; 80053; 80061; 86704; 86706; 86803; 87340; 87389; 84443

== ENCOUNTER 2025-05-24 09:39 | Day surgery (SDC) | payer BC, SELFPAY ==
[2025-05-24 09:58] VITALS: BP 96/62; PULSE 86; RESP 17; TEMP 36.9; O2SAT 100
[2025-05-24 10:17] VITALS: BMI 20.6
[2025-05-24] MEDS: Lactated Ringers 1,000 ML 80 ML IV (10:17)
--- NOTE | 2025-05-24 10:17 | W.ANESPRE ---
General Info Date of Service Date Performed: 05/24/25 Height: 5 ft 7 in Weight: 59.8 kg Body Mass Index (BMI): 20.6 Surgical Procedure: Operation Date: 05/24/25 10:50 Proposed Procedure Side Surgeon willard Langley MD Meds Allergies and Home Medications Allergies Allergy/AdvReac Type Severity Reaction Status Date / Time codeine AdvReac Intermediate Skin Rash Verified 05/24/25 09:56 Home Medication ?Medication ?Instructions ?Recorded naproxen sodium 220 mg capsule 220 mg PO QID PRN 09/01/19 (Aleve) gabapentin 300 mg capsule 300 mg PO QHS #14 caps 06/18/24 cyclobenzaprine 5 mg tablet 5 mg PO TID PRN 04/20/25 mupirocin 2 % topical ointment 1 applic topical TID #15 grams 04/20/25 (Centany) rizatriptan 10 mg disintegrating See Rx Instructions PO .COMPLEX 04/20/25 tablet (Maxalt-AUDITOR/QUALITY) #14 tabs bisacodyl 5 mg tablet,delayed 5 mg PO ONCE #4 tabs 05/06/25 release (Dulcolax (bisacodyl)) polyethylene glycol 3350 17 17 g PO ONCE #238 grams 05/06/25 gram/dose oral powder Current Visit Medications: Current Medications Generic Name Dose Route Start Last Admin Trade Name Freq PRN Reason Stop Dose Admin Ringer's Solution 1,000 mls @ 80 mls/hr 05/24/25 06:00 IV 05/24/25 23:59 INFUSION DINORAH IV Miscellaneous Supplies 1 each 05/24/25 06:00 Iv Access IV 05/24/25 23:59 DIRECTED DINORAH Sodium Biphosphate/Sodium Phosphate 133 ml 05/24/25 06:00 Na Phosphate Enema-Adult 133 Ml Btl ID 05/24/25 23:59 DIRECTED PRN Sodium Chloride 0 ml 05/24/25 06:00 Normal Saline Flush 10 Ml Syr IV 05/24/25 23:59 PRN PRN Sodium Chloride 0 ml 05/24/25 06:00 Normal Saline 10 Ml Vial IJ 05/24/25 23:59 DIRECTED PRN Sterile Water 0 ml 05/24/25 06:00 Water,Injection,Sterile 10 Ml Vial IJ 05/24/25 23:59 DIRECTED PRN PFSH Active Problems Active Problems: Problem Status Onset Code Achilles tendon contracture, bilateral Acute M67.01, M67.02 Corns and callosities Acute L84 Porokeratosis Acute Q82.8 Pain in both feet Acute M79.671, M79.672 Weight loss Acute R63.4 Plantar verruca Acute B07.0 Stress fracture, right foot, initial encounter for fracture Acute M84.374A Post-op pain Acute G89.18 Congenital bilateral pes cavus Acute Q66.71, Q66.72 Pain in joint of right foot Acute M25.571 Abscess of foot Acute L02.619 Cellulitis Acute L03.90 Left carpal tunnel syndrome Acute G56.02 Right carpal tunnel syndrome Acute G56.01 Bilateral carpal tunnel syndrome Acute G56.03 Sprain of left hand Acute S63.92XA Medical History Medical History Tobacco dependence Idiopathic thrombocytopenic purpura (ITP) Perimenopausal Wrist pain Surgical History Surgical History H/O carpal tunnel repair right Tobacco Smoking/Tobacco Use Status: Current every day Tobacco Type: cigarettes Passive smoking exposure: Yes Second hand exposure: Yes Alcohol Alcohol Intake: current Alcohol intake frequency: holidays/special occasions only Alcohol type: hard liquor Substance Use Substance use: Never Substance use type: does not use Vital Signs and Lab Results Vital Signs Most Recent Vital Signs in EMR: Most Recent Vital Signs Temp Pulse Resp BP Pulse Ox 36.9 C 86 17 96/62 L 100 05/24/25 09:58 05/24/25 09:58 05/24/25 09:58 05/24/25 09:58 05/24/25 09:58 Lab Results Complete Metabolic Panel: Sodium, (136-145) 143 mmol/L 04/26/25, 08:10 Potassium, (3.5-5.1) 3.7 mmol/L 04/26/25, 08:10 Chloride, (98-107) 106 mmol/L 04/26/25, 08:10 Carbon Dioxide, (21.0-32.0) 29.9 mmol/L 04/26/25, 08:10 BUN, (7-18) 8 mg/dL 04/26/25, 08:10 Creatinine, (0.55-1.02) 0.8 mg/dL 04/26/25, 08:10 Est GFR (CKD-EPI 2020), (mL/min/1.73m2) 90.83 04/26/25, 08:10 Calcium, (8.5-10.1) 9.3 mg/dL 04/26/25, 08:10 Albumin, (3.4-5.0) 4.0 g/dL 04/26/25, 08:10 Glucose, (74-106) 89 mg/dL 04/26/25, 08:10 Liver Function Panel: ALT, (14-59) 30 U/L 04/26/25, 08:10 AST, (15-37) 10 U/L L 04/26/25, 08:10 Thyroid Panel: TSH, (0.36-3.74) 1.63 uIU/mL 04/26/25, 08:10 Infectious Disease: HIV 1&2 Ag/Ab, 4th Gen, (Negative) Negative 04/26/25, 08:10 Hep Bs Antigen, (Negative) Negative 04/26/25, 08:10 Hepatitis C Antibody, (Negative) Negative 04/26/25, 08:10 Anesthesia Assessment and Plan Anesthesia History Personal History: No History of Anesthesia Complications Family History: No Family History of Anesthesia Complications Exercise Tolerance Exercise Tolerance: Metabolic Equivalents>4 Pertinent Negatives Pertinent Negatives: No Symptoms of GERD Cardiac & Pulmonary Exam Cardiac Exam: Normal S1/S2 Heart Sounds Pulmonary Exam: Clear Bilateral Breath Sounds Implantable Cardiac Device Does patient have a Pacemaker or an ICD?: No Airway Exam Known Difficult Airway: No Mallampati Class: 1 Mouth Opening: Normal (> 3cm) Thyromental Distance: Greater than 3 cm Neck Range of Motion: Full ROM Neck Circumference: Normal Teeth Condition: Removable Dentures/Plates Upper and Edentulous ASA Classification ASA Score: ASA 2 Emergency Case?: No NPO Status NPO Status: NPO Clears >2 hours, Solids >8 hours Status Status: Not Relevant due to Medical History Anesthesia Plan Resuscitation Status: Full Code Anesthesia Technique: General Anesthesia Airway Planned: Natural Airway Monitors Used: Standard Monitors
[2025-05-24] MEDS: Na Phosphate Enema-Adult 133 ML BTL PR ×2 (10:22→10:40)
--- NOTE | 2025-05-24 10:29 | PDOC.DSDIS_ITS ---
Date of service: 05/24/25 Discharge Plan Disposition Patient Disposition: Home Condition: Stable Discharge Details Attending Provider: Kera Langley Primary Care Provider: Chin Ellis Home Meds and New Rx's Prescriptions: Discontinued bisacodyl [Dulcolax (bisacodyl)] 5 mg tablet,delayed release (DR/EC) 5 mg PO ONCE Qty: 4 0RF Rx Instructions: Take per colonoscopy instructions provided by ordering providers office polyethylene glycol 3350 17 gram/dose powder 17 g PO ONCE Qty: 238 0RF Rx Instructions: Take per colonoscopy instructions provided by ordering providers office No Action gabapentin 300 mg capsule 300 mg PO QHS Qty: 14 0RF cyclobenzaprine 5 mg tablet 5 mg PO TID PRN rizatriptan [Maxalt-COLD PATCHER] 10 mg tablet,disintegrating See Rx Instructions PO .COMPLEX Qty: 14 5RF Rx Instructions: take 1 tab at onset of headache; if no relief may repeat 1 tab after at least 2 hrs; max = 3 tabs/24 hr PO mupirocin [Centany] 2 % ointment 1 applic topical TID Qty: 15 0RF naproxen sodium [Aleve] 220 mg Capsule 220 mg PO QID PRN Discharge Instructions Additional Instructions: I removed 8 medium to large sized polyps from the rectum, and cauterized (destroyed) 4 additional tiny ones. Thats 12 polyps total in the rectum today. I could not get past the part of the colon called the sigmoid colon, it was very tight and would not open up for the camera to pass, even after several maneuvers and tricks that normally work. You will need another colonoscopy to clear the rest of the polyps you have in the rectum, there were too many for me to clear today, and to look at the rest of the colon. I recommend your future colonoscopies be at [facility] due to the complexity and number of polyps, and the difficulty getting through the colon. I will send all 8 polyps removed today to the lab to have them analyzed. This will help us to get you in quicker with [facility]. I will send the referral to them for you once I get the results back from todays polyp removal. I will notify you in writing of the results as well. Activity:: Activity as Tolerated Diet:: As Tolerated Discharge Orders Discharge Orders: Discharge Order (Routine); Ordered 05/24/25 Ordered By: Kera Langley DS: Diagnosis Discharge Diagnosis (1) Screening for colorectal cancer: Status: Acute (2) Polyp of rectum: Status: Acute
--- NOTE | 2025-05-24 11:17 | BOWEL_PTH ---
PATIENT: Diann Roberts LOC: [facility] U#:[id number] AGE/SX: 50/F ROOM: RE05/24/[address]: Kera Langley MD : 1975 BED: DIS: 05/24/2025 SPEC #: [id number] RECD: 05/24/25 12:46 STATUS: JIMMY REQ #: [id number] DEB: 05/24/25 11:[address]: Kera Langley DEPT: Surgical Specimen RECD BY: Abbie Jimenes ENTERED: 05/24/25 12:47 SP TYPE: Bowel OTHR DR: Chin Marley, STEPHANE Tissues: 1 - BIOPSY BOWEL Procedures: GROSS AND MICRO LEVEL 4 Comments: [id number]
--- NOTE | 2025-05-24 11:40 | W.ANESPOSTOP ---
Postoperative Evaluation Date, Time and Location Date Performed: 05/24/25 Time Performed: 11:40 Patient Location: Day Surgery Unit Vital Signs Most Recent Imported Vital Signs: Most Recent Vital Signs Temp Pulse Resp BP Pulse Ox 36.9 C 86 17 96/62 L 100 05/24/25 09:58 05/24/25 09:58 05/24/25 09:58 05/24/25 09:58 05/24/25 09:58 Pain Score Most Recent Pain Score: Most Recent Pain Score Pain Level 0 05/24/25 09:58 Assessment Mental Status: Awake (Alert & Oriented to Patient Baseline) Airway and Respiratory Function: Patent airway with normal (patient baseline) respiratory exam Cardiovascular Function: Hemodynamically Stable Hydration Status: Adequately Hydrated Nausea & Vomiting: Active Nausea or Vomiting Present (Vomited 200cc of formed food in post-op DSU.) Nausea and Vomiting Management: Nausea present without vomiting, patient wishes to be discharged Pain: Pt. Denies Any Pain Peripheral Nerve Block: Patient did not receive a nerve block
[2025-05-24 11:48] VITALS: BP 92/63; PULSE 64; RESP 17; TEMP 36.1; O2SAT 100
[2025-05-24 12:16] VITALS: BP 110/73; PULSE 67; RESP 20; TEMP 36.2; O2SAT 100
--- NOTE | 2025-05-24 12:22 | W.ANESPOSTOP ---
Postoperative Evaluation Date, Time and Location Date Performed: 05/24/25 Time Performed: 11:53 Patient Location: Day Surgery Unit Vital Signs Most Recent Imported Vital Signs: Most Recent Vital Signs Temp Pulse Resp BP Pulse Ox 36.2 C L 67 20 110/73 100 05/24/25 12:16 05/24/25 12:16 05/24/25 12:16 05/24/25 12:16 05/24/25 12:16 Most Recent Vital Signs Temp Pulse Resp BP Pulse Ox 36.9 C 86 17 96/62 L 100 05/24/25 09:58 05/24/25 09:58 05/24/25 09:58 05/24/25 09:58 05/24/25 09:58 Pain Score Most Recent Pain Score: Most Recent Pain Score Pain Level 0 05/24/25 09:58 Assessment Mental Status: Awake (Alert & Oriented to Patient Baseline) Airway and Respiratory Function: Patent airway with normal (patient baseline) respiratory exam Cardiovascular Function: Hemodynamically Stable Hydration Status: Adequately Hydrated Nausea & Vomiting: No Nausea or Vomiting Pain: Pt. Denies Any Pain Peripheral Nerve Block: Patient did not receive a nerve block
--- NOTE | 2025-05-24 13:08 | W.COLOREPORT ---
Date of service: 05/24/25 Time of Service: 13:08 Colonoscopy Report Date of procedure: 05/24/25 Pre-op diagnosis general: Screening for colorectal cancer Post-op diagnosis procedure note: other (tortuous sigmoid colon, multiple rectal polyps) Procedure: Flexible sigmoidoscopy with multiple hot snare polypectomies of rectal polyps Surgeon: Kera Langley Anesthesia Type: General:No Airway Estimated blood loss (mL): 3 Pathology: other (1. Multiple rectum polyps. ) Complications: None Disposition: same day Prep: Miralax/Dulcolax (Excellent prep in the visualized portion of the colon and rectum) Findings: Unable to pass beyond sigmoid colon at 65cm. Procedure Description: Patient is here for routine screening colonoscopy. Informed consent was obtained and the patient was taken to the procedure area. The patient was placed in left lateral decubitus position on the procedure table. Timeout was performed. Anesthesia was induced. A lubricated colonoscope was inserted through the anus and passed to the sigmoid colon. Unable to pass through a sharp turn of the sigmoid colon at 65cm from the verge. Hydroinsufflation, supine positioning, abdominal counterpressure all attempted without success in bypassing this segment. Scope withdrawn and sigmoidectomy/proctoscopy completed. 8 pedunculated and sessile polyps ranging in size from 10mm to 15mm excised with hot snare. All polyps growing nearby eachother between 10cm and 20-25cm. Polyp trap and direct transanal removal used to retrieve the polyps. One Resolution endoclip was used to close one polyp defect. Polyps all placed together as multiple rectum polyps. 4 additional rectum polyps cauterized. These were flat and ranged in size from 2mm to 4mm. Additional flat polyps seen throughout the rectum ranging in size from 2mm to 12mm. These were left in place due to significant polypectomy already performed in the area. The scope was retroflexed in the anorectal junction examined. Uncomplicated internal hemorrhoids present. Assessment and plan; Significant polyp burden in the visualized rectum. Unable to pass sigmoid colon to complete colonoscopy. She will need referral to tertiary center for completion colonoscopy and additional polyp clearance. I will place this referral once pathology on excised polyps has resulted to determine urgency.
== END 2025-05-24 12:33 | disposition home or self-care (01) ==
PROVIDERS: PCP Nurse Practitioner Family; Visit Provider Surgery
PROC: 0DJD8ZZ Inspection of Lower Intestinal Tract, Via Natural or Artificial Opening Endoscopic (ICD-10-PCS; CPT 45378; principal; 2025-05-24 10:45)
DX: Z12.11 Encounter for screening for malignant neoplasm of colon (principal); Z12.12 Encounter for screening for malignant neoplasm of rectum; D12.8 Benign neoplasm of rectum; K56.2 Volvulus
CPT/HCPCS: 45338; 88305; J2003; J2405; J2704

== ENCOUNTER 2025-07-01 17:20 | Outpatient (REF) | payer BC, SELFPAY ==
--- NOTE | 2025-07-01 09:00 | PAPFT_PTH ---
PATIENT: Diann Roberts LOC: [facility] U#:[id number] AGE/SX: 50/F ROOM: RE07/01/[address]: Chin Marley DNP : 1975 BED: DIS: 07/01/2025 SPEC #: [id number] RECD: 07/01/25 17:29 STATUS: JIMMY REEleazar #: [id number] DEB: 07/01/25 09:[address]: Chin Ellis DEPT: [facility] Cytology RECD BY: Abbie Jimenes Tissues: 1 - CX/ENDOCX FOR PAP SMEARS Procedures: PAP THIN PREP/[facility] Screening HPV DNA PROBE Comments: [id number] (HPV 16 & 18/45)
== END 2025-07-01 17:21 | disposition home or self-care (01) ==
LOC: LBN 17:20
PROVIDERS: PCP Nurse Practitioner Family; Visit Provider Nurse Practitioner Family
DX: Z12.4 Encounter for screening for malignant neoplasm of cervix (principal)
CPT/HCPCS: 88142; 87624

== ENCOUNTER → 2025-09-29 00:10 | Outpatient (CLI) | payer BC, SELFPAY ==
--- NOTE | 2025-09-29 06:37 | DI.MRI_ITS ---
Exam(s) MR LOWER EXTREMITY RT WO/W EXAM: MR LOWER EXTREMITY RT WO/W CLINICAL HISTORY: Right second interspace neuroma,bursitis,m71.9,g57.61. TECHNIQUE: Multiplanar multisequence MRI was performed. CONTRAST MATERIAL: IV Contrast: 14 mL of Dotarem contrast administered. COMPARISON: CR XR FOOT RT COMPLETE from 08/27/2024 FINDINGS: BONES/JOINTS: No evidence of fracture. No evidence of bone lesion. No joint space narrowing identified. No joint effusion identified. LIGAMENTS: The medial and lateral collateral ligaments are intact. MUSCULOTENDINOUS STRUCTURES: Visualized portion of the planar fascia is unremarkable. The visualized intrinsic muscles and tendons of the foot are unremarkable. SOFT TISSUES: Unremarkable. ENHANCEMENT: No suspicious enhancement identified. There is no evidence of a soft tissue mass in the 2nd intermetatarsal space. OTHER FINDINGS: There is no focal fluid collection identified. IMPRESSION: 1. There is no evidence of a mass or fluid collection in the 2nd intermetatarsal space. 2. No acute abnormality. DATA REPOSITORY:
[2025-09-29] MEDS: Normal Saline Flush 10 ML SYR IVP (13:14)
[2025-09-29] MEDS: Gadoterate meglumine 20 ML SYRINGE IJ (13:14)
== END ==
PROVIDERS: PCP Nurse Practitioner Family; Visit Provider Podiatrist
DX: G57.61 Lesion of plantar nerve, right lower limb (principal); M71.9 Bursopathy, unspecified
CPT/HCPCS: 73720